=== PATIENT | female | born 1935 | race African-American/Black ===

== ENCOUNTER 2016-10-01 19:32 | Emergency (ER) | payer MEDICARE, OTHER ==
[~2016-10-01] VITALS: Ht 172.7 cm; Wt 72.6 kg
[2016-10-01 20:00] VITALS: BP 135/77
[2016-10-01 20:09] LABS: BASOPHILS % (AUTO) 1.8 % (0.0-2.0); EOSINOPHILS % (AUTO) 3.9 % (0.0-3.0); LYMPHOCYTES % (AUTO) 43.2 % (20.0-45.0); MEAN CORPUSCULAR HGB CONC 31.8 G/DL (32.0-36.0); MEAN CORPUSCULAR VOLUME 76 FL (80-99); MEAN PLATELET VOLUME 6.7 FL (6.5-10.1); MONOCYTES % (AUTO) 10.3 % (1.0-10.0); NEUTROPHILS % (AUTO) 40.7 % (45.0-75.0); PLATELET COUNT 199 K/UL (150-450); RED BLOOD COUNT 4.37 M/UL (4.20-5.40); RED CELL DISTRIBUTION WIDTH 16.7 % (11.6-14.8); WHITE BLOOD COUNT 4.9 K/UL (4.8-10.8)
[2016-10-01 20:21] LABS: ALANINE AMINOTRANSFERASE 15 U/L (3-33); ALBUMIN/GLOBULIN RATIO 1.1 (1.0-2.7); ANION GAP 16 (5-15); ASPARTATE AMINO TRANSFERASE 34 U/L (5-40); CALCIUM 9.1 mg/dL (8.6-10.2); CARBON DIOXIDE 27 mEQ/L (20-30); CHLORIDE 96 mEQ/L (98-107); CREATININE 4.2 mg/dL (0.5-0.9); HEMOLYSIS 96; LIPASE 58 U/L (< 60); POTASSIUM 4.1 mEQ/L (3.4-4.9); SODIUM 139 mEQ/L (135-145); TOTAL PROTEIN 6.7 g/dL (6.6-8.7)
[2016-10-01 21:15] VITALS: BP 170/83
[2016-10-01 21:54] LABS: APPEARANCE,URINE SLIGHTLY CLOUDY; KETONES,URINE NEGATIVE (NEGATIVE); LEUKOCYTE ESTERASE ,URINE NEGATIVE (NEGATIVE); NITRITE,URINE NEGATIVE (NEGATIVE); PH,URINE 6 (4.5-8.0); PROTEIN,URINE 4+ (NEGATIVE); UROBILINOGEN,URINE NORMAL MG/DL (0.0-1.0)
[2016-10-01 22:06] LABS: RBC,URINE 0-2 /HPF (0 - 2); SQUAMOUS EPITHELIAL CELL,UR OCCASIONAL /LPF (NONE/OCC); WBC,URINE 0-2 /HPF (0 - 2)
[2016-10-01 22:07] LABS: AMORPHOUS SEDIMENT,UR MANY /LPF; BACTERIA,URINE MODERATE /HPF
[2016-10-01 22:15] VITALS: BP 163/88
[2016-10-01 22:20] VITALS: BP 163/88
--- NOTE | 2016-10-02 09:20 | Diagnostic Imaging Report ---
Indication: PAIN Technique: Continuous helical scanning was performed without any contrast material from the diaphragms through the pelvis to elevated creatinine. Axial, sagittal, and coronal images were generated. Dose: Total Dose Length Product - DLP [address] Dose Index - CTDIvol(s) 13.88 mGy. Comparison: None Findings: Lack of any contrast material limits evaluation. There is bibasilar atelectasis. There are multiple focal low-density lesions within the liver. These are not clearly cystic but difficult to evaluate without contrast. The spleen is unremarkable. The pancreas is normal. Adrenal glands are unremarkable. The left kidney is small. Right kidney is normal in size. There are bilateral renal masses. These are not characterizable on this exam. Calcification is noted in the aorta and its branches. There is no retroperitoneal adenopathy. Diverticula are noted in the right colon. The bowel is normal caliber. The appendix is not visualized. The bladder is unremarkable. Uterus is absent. Degenerative changes are noted in the spine. There are multiple compression fractures of T12-L2, likely old. Impression: Multiple compression fractures in the spine, probably old. Multiple lesions in the liver. It is uncertain whether these represent cystic lesions or solid masses. Ultrasound may be helpful for better evaluation if contrast material could not be administered. Small left kidney. There are bilateral renal masses, nonspecific area and further characterization with ultrasound suggested. Atherosclerotic change. Previous hysterectomy. Appendix not visualized. Atelectasis in the bases. The above report is concordant with preliminary reading by [employer] . The CT scanner at [facility] is accredited by the [employer] and the scans are performed using protocols designed to limit radiation exposure to as low as reasonably achievable to attain images of sufficient resolution adequate for diagnostic evaluation.
--- NOTE | 2016-10-02 15:34 | Emergency Room Report ---
History of Present Illness General Chief Complaint: Abdominal Pain Source: Patient, EMS Present Illness HPI Patient is 81-year-old female who presented after increased abdominal pain. The patient had the questionable symptoms. Patient prior history dementia but cannot state where the pain was. Patient in been staying at a shelter. Allergies: Coded Allergies: No Known Allergies (Verified , 01/05/09) Patient History Last Menstrual Period: Unknown Now: No Reviewed Nursing Documentation: PMH: Agreed, PSxH: Agreed Nursing Documentation-PMH Past Medical History: No History, Except For Hx Neurological Problems: Yes - Dementia Hx Cerebrovascular Accident: Yes - Stroke Physical Exam Vital Signs Date Time Temp Pulse Resp B/P Pulse Ox O2 Delivery O2 Flow Rate FiO2 10/01/16 19:28 98.4 74 15 170/83 100 Room Air Sp02 EP Interpretation: reviewed, normal General Appearance: normal inspection, well appearing, no apparent distress, alert, GCS 15 Head: atraumatic ENT: normal ENT inspection, hearing grossly normal, normal voice Neck: normal inspection, full range of motion, supple, no bony tend Respiratory: normal inspection, lungs clear, normal breath sounds, no respiratory distress, no retraction, no wheezing Cardiovascular #1: regular rate, rhythm, no edema Gastrointestinal: normal inspection, normal bowel sounds, non tender, soft, no guarding, no hernia Genitourinary: no CVA tenderness Musculoskeletal: normal inspection, back normal, normal range of motion Neurologic: normal inspection, alert, responsive, speech normal Psychiatric: normal inspection, judgement/insight normal, mood/affect normal Skin: normal inspection, normal color, no rash Medical Decision Making Diagnostic Impression: Primary Impression: Abdominal pain of unknown etiology Additional Impression: Renal insufficiency ER Course Patient presented for abdominal pain. Differential diagnoses included ischemic bowel, appendicitis, perforated viscus, abdominal aortic aneurysm, inferior myocardial infarction, viral gastroenteritis A CT abdomen pelvis showed nonspecific changes the patient was noted to have prior to lumbar fractures. The patient's son was wasn't for the patient's abnormalities laboratory testing. He was advised to have the patient rechecked with primary care for further recheck of laboratory tests. Patient is discharged back to the shelter. Labs Test 10/01/16 19:55 10/01/16 21:30 White Blood Count 4.9 K/UL (4.8-10.8) Red Blood Count 4.37 M/UL (4.20-5.40) Hemoglobin 10.5 G/DL (12.0-16.0) Hematocrit 33.1 % (37.0-47.0) Mean Corpuscular Volume 76 FL (80-99) Mean Corpuscular Hemoglobin 24.0 PG (27.0-31.0) Mean Corpuscular Hemoglobin Concent 31.8 G/DL (32.0-36.0) Red Cell Distribution Width 16.7 % (11.6-14.8) Platelet Count 199 K/UL (150-450) Mean Platelet Volume 6.7 FL (6.5-10.1) Neutrophils (%) (Auto) 40.7 % (45.0-75.0) Lymphocytes (%) (Auto) 43.2 % (20.0-45.0) Monocytes (%) (Auto) 10.3 % (1.0-10.0) Eosinophils (%) (Auto) 3.9 % (0.0-3.0) Basophils (%) (Auto) 1.8 % (0.0-2.0) Prothrombin Time 10.0 SEC (9.30-11.50) Prothromb Time International Ratio 1.0 (0.9-1.1) Activated Partial Thromboplast Time 24 SEC (23-33) Sodium Level 139 mEQ/L (135-145) Potassium Level 4.1 mEQ/L (3.4-4.9) Chloride Level 96 mEQ/L (98-107) Carbon Dioxide Level 27 mEQ/L (20-30) Anion Gap 16 (5-15) Blood Urea Nitrogen 51 mg/dL (7-23) Creatinine 4.2 mg/dL (0.5-0.9) Estimat Glomerular Filtration Rate mL/min (>60) Glucose Level 118 mg/dL (74-106) Calcium Level 9.1 mg/dL (8.6-10.2) Total Bilirubin < 0.2 mg/dL (0.0-1.2) Aspartate Amino Transf (AST/SGOT) 34 U/L (5-40) Alanine Aminotransferase (ALT/SGPT) 15 U/L (3-33) Alkaline Phosphatase 62 U/L (35-104) Total Protein 6.7 g/dL (6.6-8.7) Albumin 3.6 g/dL (3.5-5.2) Globulin 3.1 g/dL Albumin/Globulin Ratio 1.1 (1.0-2.7) Lipase 58 U/L (< 60) Urine Color Pale yellow Urine Appearance Slightly cloudy Urine pH 6 (4.5-8.0) Urine Specific [place] 1.015 (1.005-1.035) Urine Protein 4+ (NEGATIVE) Urine Glucose (UA) Negative (NEGATIVE) Urine Ketones Negative (NEGATIVE) Urine Occult Blood 1+ (NEGATIVE) Urine Nitrite Negative (NEGATIVE) Urine Bilirubin Negative (NEGATIVE) Urine Urobilinogen Normal MG/DL (0.0-1.0) Urine Leukocyte Esterase Negative (NEGATIVE) Urine RBC 0-2 /HPF (0 - 2) Urine WBC 0-2 /HPF (0 - 2) Urine Squamous Epithelial Cells Occasional /LPF Urine Amorphous Sediment Many /LPF (NONE) Urine Bacteria Moderate /HPF (NONE) Last Vital Signs Date Time Temp Pulse Resp B/P Pulse Ox O2 Delivery O2 Flow Rate FiO2 10/01/16 22:20 98.4 79 15 163/88 100 Room Air Status: improved Disposition: HOME, SELF-CARE Condition: Stable Patient Instructions: Abdominal Pain, Adult MichaelRen Oct 02, 2016 15:34
--- NOTE | 2016-10-06 00:33 | Cardiology Report ---
APPROVED REPORT EKG Measurement Heart [id number] Normal sinus rhythm Possible Left atrial enlargement T wave abnormality, consider lateral ischemia Prolonged QT Abnormal ECG
== END 2016-10-01 22:20 | disposition home or self-care (01) ==
LOC: EDBD 19:32 → EMR 19:48
DX: R10.9 Unspecified abdominal pain (principal); N28.9 Disorder of kidney and ureter, unspecified; F03.90 Unspecified dementia, unspecified severity, without behavioral disturbance, psychotic disturbance, mood disturbance, and anxiety; Z86.73 Personal history of transient ischemic attack (TIA), and cerebral infarction without residual deficits
CPT/HCPCS: 36415; 74176; 80053; 81003; 83690; 85025; 85610; 85730; 87086; 93005; 99284

== ENCOUNTER 2017-06-16 12:19 | Inpatient (IN) | payer OTHER ==
[~2017-06-16] VITALS: Ht 162.6 cm; Wt 63.5 kg
[~2017-06-16 12:19] MED LIST: ACETAMINOP160 MG/51 ORAL; AMLODIPINE BESY10 MG ORAL; ATORVASTATIN CA20 MG ORAL; BENZONATATE100 MG ORAL; CALCIUM 500 +1 EAC6 PO; FUROSEMIDE20 M1 ORAL; HYDRALAZINE HCL50 MG ORAL; LABETALOL HCL200 MG ORAL; MIRALAX17 G2 ORAL; NEPHRO-VITE RX1 EAC1 PO; QUETIAPINE FUMA25 MG ORAL; SERTRALINE HCL25 MG ORAL
[2017-06-16 12:35] VITALS: BP 207/93
[2017-06-16] MEDS ORDERED: levETIRAcetam 500mg/NS100ml 100 ML IVPB ONE (12:45)
--- NOTE | 2017-06-16 13:03 | Diagnostic Imaging Report ---
Indication: Seizures, altered mental status Technique: spiral acquisitions obtained through the brain. Angled axial and coronal 5 x 5 mm slices were reconstructed. No IV contrast utilized. Radiation dose was minimized using automated exposure control Total dose length product 1418 mGycm. CTDIvol(s) 70 mGy Comparison: none FINDINGS: No acute hemorrhage or edema. No mass effect or midline shift. There is age-related enlargement of the ventricles and extra axial CSF spaces. There is periventricular deep white matter ischemic change. Old lacunar infarct in the left basal ganglia is again demonstrated. There is resultant ex vacuo dilatation of the frontal horn of the left lateral ventricle. Normal jones-white differentiation. Is evidence of prior bilateral ocular surgery. Visualized sinuses are unremarkable. Intact calvarium. No significant interim change IMPRESSION: Chronic and age-related changes. Negative for acute intracranial bleed or mass effect The CT scanner at [facility] is accredited by the [employer] and the scans are performed using protocols designed to limit radiation exposure to as low as reasonably achievable to attain images of sufficient resolution adequate for diagnostic evaluation
[2017-06-16 14:03] LABS: BASOPHILS % (AUTO) 0.8 % (0.0-2.0); EOSINOPHILS % (AUTO) 2.7 % (0.0-3.0); HEMATOCRIT 33.2 % (37.0-47.0); HEMOGLOBIN 9.7 G/DL (12.0-16.0); LYMPHOCYTES % (AUTO) 21.3 % (20.0-45.0); MEAN CORPUSCULAR VOLUME 74 FL (80-99); MONOCYTES % (AUTO) 6.9 % (1.0-10.0); NEUTROPHILS % (AUTO) 68.3 % (45.0-75.0); PLATELET COUNT 210 K/UL (150-450); RED BLOOD COUNT 4.47 M/UL (4.20-5.40); RED CELL DISTRIBUTION WIDTH 15.9 % (11.6-14.8); WHITE BLOOD COUNT 6.2 K/UL (4.8-10.8)
[2017-06-16 14:14] LABS: ANION GAP 10 mmol/L (5-15); BLOOD UREA NITROGEN 69 mg/dL (7-18); CALCIUM 8.2 MG/DL (8.5-10.1); CARBON DIOXIDE 27 MMOL/L (21-32); CHLORIDE 105 MMOL/L (98-107); CREATININE 4.8 MG/DL (0.55-1.30); POTASSIUM 3.6 MMOL/L (3.5-5.1); SODIUM 142 MMOL/L (136-145)
[2017-06-16 14:15] VITALS: BP 207/80
[2017-06-16 14:18] LABS: ALANINE AMINOTRANSFERASE 14 U/L (12-78); ALBUMIN 3.3 G/DL (3.4-5.0); ALBUMIN/GLOBULIN RATIO 0.9 (1.0-2.7); ALKALINE PHOSPHATASE 56 U/L (46-116); ASPARTATE AMINO TRANSFERASE 18 U/L (15-37); BILIRUBIN,TOTAL 0.2 MG/DL (0.2-1.0); CREATINE KINASE 129 U/L (26-308)
--- NOTE | 2017-06-16 14:18 | Diagnostic Imaging Report ---
Indication: Pain Technique: One view of the chest Comparison: 11/14/2016 Findings: Atelectasis or scarring is again demonstrated in the left mid to lower lung periphery. Lungs and pleural spaces are otherwise clear. The heart is borderline enlarged. The aorta is tortuous and ectatic Impression: No acute process Borderline cardiomegaly
--- NOTE | 2017-06-16 15:28 | Emergency Room Report ---
History of Present Illness General Chief Complaint: Seizure Source: Family Member, EMS Present Illness HPI According to assisted facility patient had a seizure. Her son doubts this. She's had blackout spells because of orthostatic hypotension and seizure- like activity in the past. She does have chronic renal insufficiency has not had dialysis. She is on Keppra right now she was hospitalized recently for similar episode at [facility]. Usually this happens when she stands. Today she was sitting eating and had a similar episode with shaking. Paramedics report normal accucheck in field. No stated missed doses of medications. No fevers. No cough. No vomiting. Patient not answering questions. She does have HTN and chronic renal insufficiency without ever being on dialysis. She's been admitted for hypertensive urgency. H/O TIA and stroke in past. H/O dementia. Microcytic anemia She was evaluated for abdominal pain 09/2016 - no dx. Allergies: Coded Allergies: No Known Allergies (Verified , 01/05/09) Patient History Limited by: medical condition Past Medical History: see triage record, old chart reviewed Social History: Denies: smoking Social History Narrative SNF Reviewed Nursing Documentation: PMH: Agreed, PSxH: Agreed Nursing Documentation-PMH Past Medical History: No History, Except For Hx Hypertension: Yes Hx Cerebrovascular Accident: Yes - Stroke Hx Dementia: Yes Hx Alzheimer's Disease: Yes Hx Memory Loss: Yes Hx Dizziness: Yes Review of Systems All Other Systems: limited Physical Exam Vital Signs Date Time Temp Pulse Resp B/P (MAP) Pulse Ox O2 Delivery O2 Flow Rate FiO2 06/16/17 12:12 98.1 82 18 182/73 96 Room Air Sp02 EP Interpretation: reviewed, normal General Appearance: no apparent distress, alert - but ebulic, Chronically Ill Head: normocephalic, atraumatic Eyes: bilateral eye normal inspection, bilateral eye PERRL ENT: moist mucus membranes Neck: supple Respiratory: lungs clear, normal breath sounds Cardiovascular #1: regular rate, rhythm Cardiovascular #2: 2+ radial (R) Gastrointestinal: normal inspection, normal bowel sounds, non tender, no mass, non-distended Musculoskeletal: back normal, normal range of motion Neurologic: responsive, DTRs symmetric, sensory intact, motor weakness - generalized Psychiatric: depressed affect Skin: normal inspection, warm/dry Medical Decision Making Diagnostic Impression: Primary Impression: Seizure-like activity Additional Impressions: CRF (chronic renal failure) Qualified Codes: N18.3 - Chronic kidney disease, stage 3 (moderate) Hypertensive urgency ER Course Patient presents with question of seizure versus syncope. DDx: orthostatic syncope, uncontrolled seizures, breakthrough seizure, electrolyte abnormalities , AMI, arrhythmia amongst others. Patient evaluated with CT head, EKG, CXR and labs. Patient treated with ativan and keppra dose. EKG without injury. CXR no infiltrates. CT head with chronic changes. Labs with chronic renal disease, microcytic anemia, negative troponin. UA not obtained. Patient without seizure activity. HTN treated with hydralazine. Patient needs cardiac observation. Admit tele Dr. Gonzalez. Requests consult Dr. Sewell. Discussed with Dr. Adorno. Laboratory Tests Test 06/16/17 13:30 White Blood Count 6.2 K/UL (4.8-10.8) Red Blood Count 4.47 M/UL (4.20-5.40) Hemoglobin 9.7 G/DL (12.0-16.0) L Hematocrit 33.2 % (37.0-47.0) L Mean Corpuscular Volume 74 FL (80-99) L Mean Corpuscular Hemoglobin 21.7 PG (27.0-31.0) L Mean Corpuscular Hemoglobin Concent 29.2 G/DL (32.0-36.0) L Red Cell Distribution Width 15.9 % (11.6-14.8) H Platelet Count 210 K/UL (150-450) Mean Platelet Volume 8.8 FL (6.5-10.1) Neutrophils (%) (Auto) 68.3 % (45.0-75.0) Lymphocytes (%) (Auto) 21.3 % (20.0-45.0) Monocytes (%) (Auto) 6.9 % (1.0-10.0) Eosinophils (%) (Auto) 2.7 % (0.0-3.0) Basophils (%) (Auto) 0.8 % (0.0-2.0) Sodium Level 142 MMOL/L (136-145) Potassium Level 3.6 MMOL/L (3.5-5.1) Chloride Level 105 MMOL/L (98-107) Carbon Dioxide Level 27 MMOL/L (21-32) Anion Gap 10 mmol/L (5-15) Blood Urea Nitrogen 69 mg/dL (7-18) H Creatinine 4.8 MG/DL (0.55-1.30) H Estimate Glomerular Filtration Rate mL/min (>60) Glucose Level 108 MG/DL (74-106) H Calcium Level 8.2 MG/DL (8.5-10.1) L Total Bilirubin 0.2 MG/DL (0.2-1.0) Aspartate Amino Transferase (AST) 18 U/L (15-37) Alanine Aminotransferase (ALT) 14 U/L (12-78) Alkaline Phosphatase 56 U/L (46-116) Total Creatine Kinase 129 U/L (26-308) Troponin I 0.047 ng/mL (0.000-0.056) Total Protein 7.1 G/DL (6.4-8.2) Albumin 3.3 G/DL (3.4-5.0) L Globulin 3.8 g/dL Albumin/Globulin Ratio 0.9 (1.0-2.7) L EKG Diagnostic Results Rate: normal Rhythm: NSR ST Segments: no acute changes Rhythm Strip Diag. Results EP Interpretation: yes Rhythm: NSR, other - rate 75, rare PVCs Chest X-Ray Diagnostic Results Chest X-Ray Diagnostic Results : Chest X-Ray Ordered: Yes # of Views/Limited/Complete: 1 View Indication: Other EP Interpretation: Yes Interpretation: no consolidation, no effusion, no pneumothorax Impression: No acute disease Electronically Signed by: Kyle Huber MD CT/MRI/US Diagnostic Results CT/MRI/US Diagnostic Results : Imaging Test Ordered: CT head Impression chronic age related changes Last Vital Signs Date Time Temp Pulse Resp B/P (MAP) Pulse Ox O2 Delivery O2 Flow Rate FiO2 06/16/17 20:12 98.4 100 18 166/83 96 Room Air Status: improved Disposition: ADMITTED INPATIENT Condition: Serious Referrals: [facility],REFERRING (PCP) Kyle Huber M.D. Jun 16, 2017 15:28
[2017-06-16 15:39] VITALS: BP 198/95
[2017-06-16 17:08] VITALS: BP 174/65
[2017-06-16] MEDS ORDERED: LEVETIRACE500 MG/100 IV (17:08)
[2017-06-16] MEDS ORDERED: ISOSORBIDE DINI20 M2 PO (17:08)
--- NOTE | 2017-06-16 17:15 | History & Physical ---
History and Physical History & Physicial DATE OF ADMISSION: 06/16/2017 HISTORY OF PRESENT ILLNESS: This is an 81-year-old female is a halfway resident at [facility]. She had an episode of syncope and possible seizure activity while sitting eating lunch. The son reported a recent admission to with a similar presentation recently. At that time, she was hypertensive had orthostatic hypotension. PAST MEDICAL HISTORY: Notable for hypertensive cardiovascular disease, Alzheimer's dementia, previous CVA, and CKD not on dialysis. MEDICATIONS: reviewed. HTN rx recently changed by her PMD ALLERGIES: None listed. CODE STATUS: DNR. The patient is too confused to give a ROS PHYSICAL EXAMINATION: GENERAL: WD/WN VITAL SIGNS: Blood pressure >200. She is afebrile. HEENT: Unremarkable. LUNGS: Clear breath sounds bilaterally. ABDOMEN: Soft. NEUROLOGIC: Nonfocal. Poor memory LABORATORY DATA: Lab testing reviewed; creatinine 4.8. IMPRESSION: 1. Syncope, possible seizure. 2. Hypertension; orthostatic hypotension. 3. Chronic kidney disease. PLAN: neuro and renal consultants called echo, CDS adjust BP rx LUDA VALDIVIA Jun 16, 2017 17:15
[2017-06-16 17:42] VITALS: BP 164/97
[2017-06-16 20:12] VITALS: BP 166/83
--- NOTE | 2017-06-16 22:09 | Consultation ---
Consult Note Consult Note NEUROLOGY CONSULTATION: Full note dictated #[id number] 81 y/o, LH, BF with PH of HTN, AD, CVD, and a prior episode of loss of consciousness with abnormal body jerking recently. She was sitting up, eating her lunch and again had an episode of loss of consciousness with abnormal body jerking and was thus brought to the [facility] [place] ER. ON EXAM: Significant cognitive problems. Mild right paresis. CT of Brain with periventricular deep white matter ischemic changes, and an old lacunar infarct in the left basal ganglia. IMPRESSION: Syncopal event with myoclonus vs seizure. REC: EEG Labs Observe. Berkley Adorno M.D., M.S.P.BERKLEY GUERIN Jun 16, 2017 22:09
--- NOTE | 2017-06-16 22:45 | Consultation ---
DATE OF CONSULTATION: 06/16/2017 NEUROLOGY CONSULTATION CONSULTING PHYSICIAN: Oswaldo Adorno M.D. REQUESTING PHYSICIAN: Erik Gonzalez M.D. DATE OF TRACIN06/16/2017. HISTORY: Ms. Stephanie Dietrich is an 81-year-old, left-handed, black lady, who does have a past history of hypertension, Alzheimer's disease, cerebrovascular disease with prior stroke, and prior episodes of loss of consciousness with abnormal body jerking recently for which she was hospitalized at [facility]. She was functioning relatively well until the afternoon of 06/16/17 when she was sitting eating her lunch and again had an episode of loss of consciousness with some abnormal body jerking. She was brought into the [facility] for that problem. At this point in time, she feels quite well and is completely oblivious of what was going on earlier and what is going on now. She is unable to give any further history. PAST MEDICAL HISTORY: Significant for hypertension, cerebrovascular disease with prior strokes, and Alzheimer's disease. FAMILY HISTORY: Nothing significant as per the patient. PERSONAL HISTORY: Home: She lives in a snf. 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 Habits: She denies use of tobacco or illicit drugs. She says that she used to have a rare alcoholic drink in the past. PRESENT MEDICATIONS: Include Norvasc, Seroquel, Zoloft, hydralazine, and Lipitor. PHYSICAL EXAMINATION: GENERAL: She is a well-developed, well-nourished, pleasant black lady, lying in bed, in no acute distress, trying to take her EKG electrodes off. VITAL SIGNS: Pulse 98 per minute, blood pressure 166/83 mmHg, respirations 18 per minute, and temperature 98.4 degrees Fahrenheit. HEAD: Normocephalic and atraumatic. EENT: Examination benign. NECK: No neck rigidity was observed. NEUROLOGIC EXAMINATION: MENTAL STATUS EXAMINATION: She was awake and alert. She was oriented to self only. She had no idea where she was or what the date was. She was able to recall 3/3 words immediately, but could not remember any of them in 1 minute and 3 minutes. She thought that Obama was president, but could not remember presidents prior to him or following him. Her mathematical skills were impaired. Her visuospatial function was also impaired. SPEECH: She had no dysarthria. LANGUAGE: She had an anomia for low and mid frequency words. CRANIAL NERVE EXAMINATION: II: The visual coppola were intact on confrontation testing. III, IV & : The external ocular movements were full and the pupils 3 mm in diameter, equal, round, regular, and reactive to light. V: She had normal facial sensations and the temporales, masseters, and pterygoids functioned normally. VII: She had a mild right VII central facial paresis. VIII: She was able to hear well bilaterally and had no nystagmus. IX: The palate moved symmetrically on phonation. X: She had no hoarseness of voice. XI: The sternocleidomastoids and trapezii functioned normally. XII: The tongue was in midline without any fasciculations or atrophy. MOTOR SYSTEM: The tone was normal in all four extremities. Examination of muscle mass revealed no focal wasting. Examination of power revealed grade 5/5 power in all muscle groups tested. SENSORY EXAMINATION: She had intact sensations to pinprick, light touch, and graphesthesia. COORDINATION: She performed well on [id number] and [id number] testing. REFLEXES: 1+ and bilaterally symmetrical at the biceps, triceps, brachioradialis, and knees. 0 at both ankles. The plantar responses were flexor bilaterally. STANCE: She stood up with contact guard. GAIT: She walked well with contact guard. DIAGNOSTIC IMPRESSION: 1. Ms. Stephanie Dietrich is an 81-year-old, left-handed, black lady, who does have a past history of hypertension, cerebrovascular disease with prior strokes, Alzheimer's disease, and prior episodes of loss of consciousness with some abnormal body jerking, who was sitting up eating lunch and again had an episode of loss of consciousness associated with some abnormal body jerking. As a result of that, she was brought into the [facility] emergency room. 2. On neurological examination, at this time, she is completely oblivious of why she came here. She has significant problems with orientation, recent and remote memory, visuospatial function, higher cognitive function, and language. She also has a mild right VII central facial paresis and globally diminished deep tendon reflexes. 3. The CT scan of the brain without contrast reveals periventricular deep white matter ischemic changes and an old lacunar infarct in the left basal ganglia. 4. The patient's history and neurological examination are most compatible with either a syncopal episode associated with myoclonus versus less likely a questionable seizure. RECOMMENDATIONS: 1. Agree with management thus far. 2. An EEG will be ordered to evaluate the patient for ongoing ictal or interictal phenomena. 3. Laboratory data will be obtained to evaluate the patient for syncope and seizures. 4. The patient will be observed closely and depending on how she fares further recommendations will be given. Thank you for entrusting me with the care of Ms. Dietrich. I shall follow her with you. Oswaldo Adorno M.D., M.S.P.H. DR: JAZMÍN JOB#: [id number]
[2017-06-17 00:13] VITALS: BP 149/84
[2017-06-17] MEDS: HydrALAZINE 50mg tab ORAL SCH ×3 (00:36→14:42)
[2017-06-17 04:07] VITALS: BP 154/79
[2017-06-17 07:01] LABS: BASOPHILS % (AUTO) 0.5 % (0.0-2.0); EOSINOPHILS % (AUTO) 0.1 % (0.0-3.0); HEMATOCRIT 28.7 % (37.0-47.0); HEMOGLOBIN 8.9 G/DL (12.0-16.0); LYMPHOCYTES % (AUTO) 15.8 % (20.0-45.0); MEAN CORPUSCULAR VOLUME 73 FL (80-99); MONOCYTES % (AUTO) 5.6 % (1.0-10.0); NEUTROPHILS % (AUTO) 77.9 % (45.0-75.0); PLATELET COUNT 219 K/UL (150-450); RED CELL DISTRIBUTION WIDTH 15.7 % (11.6-14.8); WHITE BLOOD COUNT 10.6 K/UL (4.8-10.8)
[2017-06-17 07:48] LABS: ALANINE AMINOTRANSFERASE 19 U/L (12-78); ALBUMIN 2.8 G/DL (3.4-5.0); ALBUMIN/GLOBULIN RATIO 0.7 (1.0-2.7); ALKALINE PHOSPHATASE 53 U/L (46-116); ANION GAP 9 mmol/L (5-15); ASPARTATE AMINO TRANSFERASE 31 U/L (15-37); BILIRUBIN,TOTAL 0.4 MG/DL (0.2-1.0); BLOOD UREA NITROGEN 57 mg/dL (7-18); CALCIUM 7.7 MG/DL (8.5-10.1); CARBON DIOXIDE 27 MMOL/L (21-32); CHLORIDE 108 MMOL/L (98-107); CHOLESTEROL 265 MG/DL (< 200); CREATININE 4.5 MG/DL (0.55-1.30); HDL CHOLESTEROL 86 MG/DL (40-60); POTASSIUM 3.6 MMOL/L (3.5-5.1); SODIUM 143 MMOL/L (136-145); TRIGLYCERIDES 72 MG/DL (30-150)
[2017-06-17 08:00] VITALS: BP 147/74
[2017-06-17] MEDS: Sertraline 50mg tab ORAL SCH (08:57)
[2017-06-17] MEDS: Metoprolol 25mg tab ORAL SCH ×2 (08:57→21:26)
[2017-06-17] MEDS: Aspirin EC 81mg tab ORAL SCH (08:59)
[2017-06-17 09:01] LABS: % IRON SATURATION 6 % (15-50); IRON 13 ug/dL (50-175); TOTAL IRON BINDING CAPACITY 206 ug/dL (250-450)
[2017-06-17 09:12] LABS: FERRITIN 87 NG/ML (8-388)
[2017-06-17 12:00] VITALS: BP 152/75
--- NOTE | 2017-06-17 13:37 | General Progress Note ---
Assessment/Plan Assessment/Plan 1. Syncope, possible seizure. 2. Hypertension; orthostatic hypotension. 3. Chronic kidney disease. 4. NSTEMI the patient said she is feeling fine. She is unaware of why she is here. Her troponin was elevated she has no chest pain I have called the video tape duplicator for evaluation she is a poor candidate for intervention neurology notes were reviewed Subjective ROS Limited/Unobtainable: Yes Allergies: Coded Allergies: No Known Allergies (Verified , 01/05/09) Objective Last 24 Hour Vital Signs Date Time Temp Pulse Resp B/P (MAP) Pulse Ox O2 Delivery O2 Flow Rate FiO2 06/17/17 08:57 93 147/74 06/17/17 08:57 93 147/74 06/17/17 08:00 98.1 93 19 147/74 95 Room Air 06/17/17 06:27 154/79 06/17/17 04:07 98.2 91 18 154/79 98 Room Air 06/17/17 04:00 94 06/17/17 00:36 149/84 06/17/17 00:13 97.7 103 18 149/84 98 Room Air 06/17/17 00:00 105 06/16/17 20:12 98.4 100 18 166/83 96 Room Air 06/16/17 20:00 109 06/16/17 17:42 96.8 92 18 164/97 95 Room Air 06/16/17 17:09 92 20 174/65 100 Room Air 06/16/17 17:08 92 20 174/65 100 Room Air 06/16/17 15:52 198/95 06/16/17 15:39 85 23 198/95 100 Room Air 06/16/17 14:15 8 15 207/80 98 Room Air Intake and Output 06/16/17 06/17/17 19:00 07:00 Intake Total 1100 ml Output Total 400 ml Balance 1100 ml -400 ml Intake Oral 0 ml IV Total 1100 ml Output Urine Total 400 ml # Voids 1 Laboratory Tests 06/16/17 18:25: Troponin I 0.041 06/17/17 06:30: Troponin I 3.807H, White Blood Count 10.6#, Red Blood Count 3.90L, Hemoglobin 8.9L, Hematocrit 28.7L, Mean Corpuscular Volume 73L, Mean Corpuscular Hemoglobin 22.8L, Mean Corpuscular Hemoglobin Concent 31.0L, Red Cell Distribution Width 15.7H, Platelet Count 219, Mean Platelet Volume 9.0, Neutrophils (%) (Auto) 77.9H, Lymphocytes (%) (Auto) 15.8L, Monocytes (%) (Auto ) 5.6, Eosinophils (%) (Auto) 0.1, Basophils (%) (Auto) 0.5, Erythrocyte Sedimentation Rate 45H, Sodium Level 143, Potassium Level 3.6, Chloride Level 108H, Carbon Dioxide Level 27, Anion Gap 9, Blood Urea Nitrogen 57H, Creatinine 4.5H, Estimat Glomerular Filtration Rate , Glucose Level 120H, Hemoglobin A1c 6.3H, Calcium Level 7.7L, Iron Level 13L, Total Iron Binding Capacity 206L, Percent Iron Saturation 6L, Unsaturated Iron Binding 193, Ferritin 87, Total Bilirubin 0.4, Aspartate Amino Transf (AST/SGOT) 31, Alanine Aminotransferase ( ALT/SGPT) 19, Alkaline Phosphatase 53, Total Protein 6.7, Albumin 2.8L, Globulin 3.9, Albumin/Globulin Ratio 0.7L, Triglycerides Level 72, Cholesterol Level 265H, LDL Cholesterol 157H, HDL Cholesterol 86H, Cholesterol/HDL Ratio 3.1L, Vitamin B12 Level 1449H, Vitamin D 25-Hydroxy [Pending], 25-Hydroxy Vitamin D2 [Pending], 25-Hydroxy Vitamin D3 [Pending], Folate 45.4, Thyroid Stimulating Hormone (TSH) 1.908, Rapid Plasma Reagin [Pending] 06/17/17 13:10: Troponin I [Pending] Height (Feet): 5 Height (Inches): 4.00 Weight (Pounds): 140 General Appearance: no apparent distress Cardiovascular: normal rate Respiratory/Chest: lungs clear LUDA VALDIVIA Jun 17, 2017 13:37
[2017-06-17 14:09] LABS: CKMB 17.7 NG/ML (0.0-3.6)
--- NOTE | 2017-06-17 15:55 | Neurology Progress Note ---
Interim History Interim History Interim History Ms. Dietrich feels well. She has had no further episodes of lightheadedness, dizziness, loss of consciousness or seizure-like phenomena. She denies any new neurologic symptoms. She was able to walk to the bathroom earlier. She continues to be cognitively impoverished. Review of Systems Neuro Review of Systems Benign. Objective Physical Exam Last Vital Signs Date Time Temp Pulse Resp B/P (MAP) Pulse Ox O2 Delivery O2 Flow Rate FiO2 06/17/17 14:42 152/75 06/17/17 08:57 93 06/17/17 08:00 98.1 19 95 Room Air Laboratory Tests Test 06/16/17 18:25 06/17/17 06:30 06/17/17 13:10 Troponin I 0.041 ng/mL (0.000-0.056) 3.807 ng/mL (0.000-0.056) 7.399 ng/mL (0.000-0.056) White Blood Count 10.6 K/UL (4.8-10.8) # Red Blood Count 3.90 M/UL (4.20-5.40) L Hemoglobin 8.9 G/DL (12.0-16.0) L Hematocrit 28.7 % (37.0-47.0) L Mean Corpuscular Volume 73 FL (80-99) L Mean Corpuscular Hemoglobin 22.8 PG (27.0-31.0) L Mean Corpuscular Hemoglobin Concent 31.0 G/DL (32.0-36.0) L Red Cell Distribution Width 15.7 % (11.6-14.8) H Platelet Count 219 K/UL (150-450) Mean Platelet Volume 9.0 FL (6.5-10.1) Neutrophils (%) (Auto) 77.9 % (45.0-75.0) H Lymphocytes (%) (Auto) 15.8 % (20.0-45.0) L Monocytes (%) (Auto) 5.6 % (1.0-10.0) Eosinophils (%) (Auto) 0.1 % (0.0-3.0) Basophils (%) (Auto) 0.5 % (0.0-2.0) Erythrocyte Sedimentation Rate 45 MM/HR (0-42) H Sodium Level 143 MMOL/L (136-145) Potassium Level 3.6 MMOL/L (3.5-5.1) Chloride Level 108 MMOL/L (98-107) H Carbon Dioxide Level 27 MMOL/L (21-32) Anion Gap 9 mmol/L (5-15) Blood Urea Nitrogen 57 mg/dL (7-18) H Creatinine 4.5 MG/DL (0.55-1.30) H Estimat Glomerular Filtration Rate mL/min (>60) Glucose Level 120 MG/DL (74-106) H Hemoglobin A1c 6.3 % (4.3-6.0) H Calcium Level 7.7 MG/DL (8.5-10.1) L Iron Level 13 ug/dL (50-175) L Total Iron Binding Capacity 206 ug/dL (250-450) L Percent Iron Saturation 6 % (15-50) L Unsaturated Iron Binding 193 ug/dL (112-346) Ferritin 87 NG/ML (8-388) Total Bilirubin 0.4 MG/DL (0.2-1.0) Aspartate Amino Transf (AST/SGOT) 31 U/L (15-37) Alanine Aminotransferase (ALT/SGPT) 19 U/L (12-78) Alkaline Phosphatase 53 U/L (46-116) Total Protein 6.7 G/DL (6.4-8.2) Albumin 2.8 G/DL (3.4-5.0) L Globulin 3.9 g/dL Albumin/Globulin Ratio 0.7 (1.0-2.7) L Triglycerides Level 72 MG/DL (30-150) Cholesterol Level 265 MG/DL (< 200) H LDL Cholesterol 157 mg/dL (<100) H HDL Cholesterol 86 MG/DL (40-60) H Cholesterol/HDL Ratio 3.1 (3.3-4.4) L Vitamin B12 Level 1449 PG/ML (193-986) H Vitamin D 25-Hydroxy Pending 25-Hydroxy Vitamin D2 Pending 25-Hydroxy Vitamin D3 Pending Folate 45.4 NG/ML (8.6-58.9) Thyroid Stimulating Hormone (TSH) 1.908 uiU/mL (0.358-3.740) Rapid Plasma Reagin Pending Total Creatine Kinase 347 U/L (26-308) H Creatine Kinase MB 17.7 NG/ML (0.0-3.6) H Creatine Kinase MB Relative Index 5.1 Neurologic Exam Objective PHYSICAL EXAMINATION: GENERAL: She is a well-developed, well-nourished, pleasant black lady, lying in bed, in no acute distress. HEAD: Normocephalic and atraumatic. EENT: Examination benign. NECK: No neck rigidity was observed. NEUROLOGIC EXAMINATION: MENTAL STATUS EXAMINATION: She was awake and alert. She was oriented to self only. She had no idea where she was or what the date was. She was able to recall 3/3 words immediately, but could not remember any of them in 1 minute and 3 minutes. She thought that Obama was president, but could not remember presidents prior to him or following him. Her mathematical skills were impaired. Her visuospatial function was also impaired. SPEECH: She had no dysarthria. LANGUAGE: She had an anomia for low and mid frequency words. CRANIAL NERVE EXAMINATION: II: The visual coppola were intact on confrontation testing. III, IV & : The external ocular movements were full and the pupils 3 mm in diameter, equal, round, regular, and reactive to light. V: She had normal facial sensations and the temporales, masseters, and pterygoids functioned normally. VII: She had a mild right VII central facial paresis. VIII: She was able to hear well bilaterally and had no nystagmus. IX: The palate moved symmetrically on phonation. X: She had no hoarseness of voice. XI: The sternocleidomastoids and trapezii functioned normally. XII: The tongue was in midline without any fasciculations or atrophy. MOTOR SYSTEM: The tone was normal in all four extremities. Examination of muscle mass revealed no focal wasting. Examination of power revealed grade 5/5 power in all muscle groups tested. SENSORY EXAMINATION: She had intact sensations to pinprick, light touch, and graphesthesia. COORDINATION: She performed well on [id number] and [id number] testing. REFLEXES: 1+ and bilaterally symmetrical at the biceps, triceps, brachioradialis, and knees. 0 at both ankles. The plantar responses were flexor bilaterally. STANCE: She stood up with contact guard. GAIT: She walked well with contact guard. Impression/Recommendations Diagnostic Impression 1. Ms. Stephanie Dietrich is an 81-year-old, left-handed, black lady, who does have a past history of hypertension, cerebrovascular disease with prior strokes , Alzheimer's disease, and prior episodes of loss of consciousness with some abnormal body jerking, who was sitting up eating lunch and again had an episode of loss of consciousness associated with some abnormal body jerking. As a result of that, she was brought into the [facility] emergency room. 2. She feels better today. She has had no further episodes of lightheadedness, dizziness, loss of consciousness or seizure-like phenomena. She denies any new neurologic symptoms. She continues to be cognitively impoverished. 3. On neurological examination, at this time, she is completely oblivious of why she came here. She has significant problems with orientation, recent and remote memory, visuospatial function, higher cognitive function, and language. She also has a mild right VII central facial paresis and globally diminished deep tendon reflexes. 4. The CT scan of the brain without contrast reveals periventricular deep white matter ischemic changes and an old lacunar infarct in the left basal ganglia. 5. Laboratory test reveal significantly elevated troponins. 6. The patient's history and neurological examination are most compatible with a syncopal episode associated with myoclonus which may be related to an acute coronary syndrome. A less likely etiology would be a questionable seizure. Recommendations 1. Agree with management thus far. 2. Await EEG to evaluate the patient for ongoing ictal or interictal phenomena. 3. Await laboratory data to evaluate the patient for syncope and seizures. 4. Cardiac management as per Dr. Franklin. 5. Observe closely. Oswaldo Adorno M.D., M.S.P.OSWALDO GUERIN Jun 17, 2017 15:55
--- NOTE | 2017-06-17 16:45 | Consultation ---
DATE OF CONSULTATION: 06/17/2017 NEPHROLOGY CONSULTATION CONSULTING PHYSICIAN: Quoc Ferreira M.D. REFERRING PHYSICIAN: Erik Gonzalez M.D. REASON FOR CONSULTATION: Elevated BUN and creatinine. HISTORY OF PRESENT ILLNESS: the patient is only a fair historian. She lives in an ECF. She apparently presents with syncope, but she cannot give me any details. There is a history of chronic kidney disease. In her prior hospitalizations, her creatinines have been in the 4s for the last year. There is a history of hypertension, seizure disorder, and chronic kidney disease. PAST SURGICAL HISTORY: Bunion surgery. ALLERGIES: None known. MEDICATIONS: Include amlodipine, atorvastatin, furosemide, isosorbide, Keppra, Seroquel, oyster shell calcium, sertraline, vitamin B complex with p.r.n. acetaminophen, Imodium, hydralazine, and MiraLax. HABITS: She is a nondrinker and nonsmoker. No use of illicit drugs. SOCIAL HISTORY: She lives in an ECF. SYSTEM REVIEW: HEAD, EYES, EARS, NOSE, AND THROAT: She states her vision and hearing is good. ENDOCRINE: She states she has diabetes for many years, but apparently she is not on diabetic medicines now. No known thyroid disease. PULMONARY: Denies shortness of breath or chronic cough. CARDIAC: Denies chest pain or palpitations. She has a history of hypertension and hyperlipidemia. GASTROINTESTINAL: No nausea, vomiting, or abdominal pain. GENITOURINARY: No dysuria or hematuria. NEUROLOGIC: Questionable CVA noted on a prior hospitalization. She was hospitalized for altered mental status in the past and had per reports on the chart negative MRI recently. PHYSICAL EXAMINATION: GENERAL: The patient is alert, elderly lady, in no acute distress. VITAL SIGNS: Temperature 98.2, pulse 91, respirations 18, and blood pressure 154/79. HEAD, EYES, EARS, NOSE, AND THROAT: Sclerae are nonicteric. Ocular motions intact in all directions. Oral mucosa is moist. NECK: No adenopathy or thyroid enlargement. LUNGS: Clear. HEART: Regular rhythm. I hear no murmur. ABDOMEN: Soft without organomegaly or masses. EXTREMITIES: No edema, cyanosis, or clubbing. NEUROLOGIC: She is alert and responsive. Ocular motions intact in all directions. Smile symmetric. Tongue is midline. She moves all extremities. PERTINENT LABORATORIES: White count 10.6 and hemoglobin is 8.9. Sodium 143, potassium is 3.6, chloride 108, CO2 27, BUN 57, creatinine 4.5, glucose 120, and calcium is 7.7. Troponin serially as follows, 0.047, 0.041, and 3.807. The albumin is 2.8. Cholesterol 265. TSH 1.9. IMPRESSION: The patient has chronic kidney disease with serum creatinine in the 4s. There is, on this admission, an elevated troponin, but she denies chest pain. There is a history of seizure disorder. Her total CK is normal at 129. So, it appears that the troponin is indeed a true abnormality. PLAN: The patient's renal function appears to be stable. I would avoid dehydration. She is being evaluated for syncope and cardiac status and case was discussed in detail with Dr. Gonzalez. Epogen should be given for the anemia of chronic kidney disease. At this point, she has no symptoms of uremia and can survive without dialysis, although in the long run, she may need to consider whether or not dialysis is in her goals of care. Quoc Ferreira M.D. : TAZ JOB#: [id number] CC:
[2017-06-17 20:12] VITALS: BP 160/77
[2017-06-17] MEDS: Epogen (for ESRD on dialysis) SUBQ SCH (21:27)
[2017-06-18] VITALS (7 sets, daily range): BP systolic 139–195; BP diastolic 79–102
[2017-06-18] MEDS: HydrALAZINE 50mg tab ORAL SCH ×4 (00:21→22:24)
--- NOTE | 2017-06-18 03:45 | Consultation ---
DATE OF CONSULTATION: 06/17/2017 CARDIOLOGY CONSULTATION CONSULTING PHYSICIAN: Kyle Franklin M.D. REQUESTING PHYSICIAN: Erik Gonzalez M.D. REASON FOR CONSULT: Elevated troponin level. HISTORY OF PRESENT ILLNESS: This is an elderly female, age 81, who lives in an extended care facility. History is obtained mostly from her son at the bedside. The patient apparently had a syncopal episode, but could not give any details. Her son did not have any specific seizure noted at the long term. The patient was admitted here yesterday afternoon and started on a case monitor. Since admission, no arrhythmias have been noted. Of concern, however, is an elevated troponin level detected today. The patient has not had any chest pain or shortness of breath to her recollection and has none now. PAST MEDICAL HISTORY: Includes cerebrovascular disease with dementia, chronic kidney disease, hypertension, atherosclerotic cardiovascular disease, and suspected seizure disorder. SOCIAL HISTORY: Negative for smoking, alcohol, or substance abuse. FAMILY HISTORY: Noncontributory. ALLERGIES: None known. MEDICATIONS: Reviewed and reconciled. REVIEW OF SYSTEMS: Unobtainable reliably from the patient. Pertinent data is outlined above as obtained from her son. PHYSICAL EXAMINATION: VITAL SIGNS: Blood pressure 150/79, pulse 91, respiratory rate 18, and afebrile. HEENT: Conjunctivae are pink. Oropharynx clear. NECK: Supple. Jugular venous pressure normal. No bruits. LUNGS: Clear. CARDIAC: Regular rhythm and rate. Normal S1, S2 with a fourth heart sound. No murmur. ABDOMEN: Soft, nontender. No guarding or rebound. EXTREMITIES: No edema. NEUROLOGIC: Nonfocal. LABORATORY DATA: Troponin 0.047 on admission and today 3.80. Albumin 2.8. BUN 57 and creatinine 4.5. White count 10.6 and hemoglobin 8.9. IMPRESSION: 1. Acute myocardial infarction. 2. Syncopal episode may be associated with that event. 3. Chronic kidney disease. 4. Cerebrovascular disease with dementia. PLAN: 1. Anti-platelet therapy with aspirin. 2. Cardiac monitoring. 3. Add statin drug, beta-blockade with titration. 4. Monitor cardiorenal parameters and volume status. 5. Medical management in this clinical setting. Kyle Franklin M.D. DR: TED JOB#: [id number] CC:
[2017-06-18] MEDS ORDERED: HydrALAZINE 50mg tab ORAL ONE (04:15)
[2017-06-18 07:31] LABS: EOSINOPHILS % (AUTO) 3.8 % (0.0-3.0); HEMATOCRIT 29.6 % (37.0-47.0); HEMOGLOBIN 9.2 G/DL (12.0-16.0); LYMPHOCYTES % (AUTO) 22.5 % (20.0-45.0); MEAN CORPUSCULAR VOLUME 74 FL (80-99); MONOCYTES % (AUTO) 7.5 % (1.0-10.0); NEUTROPHILS % (AUTO) 65.3 % (45.0-75.0); PLATELET COUNT 205 K/UL (150-450); RED BLOOD COUNT 3.98 M/UL (4.20-5.40); RED CELL DISTRIBUTION WIDTH 15.5 % (11.6-14.8); WHITE BLOOD COUNT 8.5 K/UL (4.8-10.8)
[2017-06-18 07:50] LABS: ANION GAP 11 mmol/L (5-15); BLOOD UREA NITROGEN 59 mg/dL (7-18); CALCIUM 7.9 MG/DL (8.5-10.1); CARBON DIOXIDE 25 MMOL/L (21-32); CHLORIDE 108 MMOL/L (98-107); CREATININE 4.8 MG/DL (0.55-1.30); POTASSIUM 3.6 MMOL/L (3.5-5.1); SODIUM 144 MMOL/L (136-145)
[2017-06-18] MEDS: Aspirin EC 81mg tab ORAL SCH (08:37)
[2017-06-18] MEDS: Metoprolol 25mg tab ORAL SCH ×2 (08:38→20:36)
[2017-06-18] MEDS: Sertraline 50mg tab ORAL SCH (08:38)
--- NOTE | 2017-06-18 10:00 | Progress Note ---
DATE: 06/18/2017 CARDIOLOGY PROGRESS NOTE SUBJECTIVE: The patient without any seizure activity. No chest pain. No shortness of breath. OBJECTIVE: VITAL SIGNS: Blood pressure this morning is extremely labile ranging from 139/97 to 203/99, oxygen saturation on room air is 94% to 97%, and heart rate is 86 to 91. LUNGS: Good breath sounds. No wheezing. No tenderness over the chest wall. HEART: Regular rhythm and rate. Normal S1, S2 with a fourth heart sound. ABDOMEN: Soft. EXTREMITIES: No edema. LABORATORY DATA: Labs are pending. IMPRESSION: 1. Acute myocardial infarction. 2. Iron deficiency anemia. 3. Cerebrovascular disease with dementia. 4. Possible seizure more likely antiarrhythmic event associated with myocardial infarction. 5. Moderate protein-calorie malnutrition. PLAN: Maintain current medication regimen including aspirin and statin as well as beta-andrez without change. Outpatient evaluation for EEG. Titrate antihypertensive medications. Kyle Franklin M.D. DR: BRENNON JOB#: [id number] CC:
--- NOTE | 2017-06-18 10:44 | Nephrology Progress Note ---
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 Subjective ROS Limited/Unobtainable: Yes Objective Objective Last 24 Hour Vital Signs Date Time Temp Pulse Resp B/P (MAP) Pulse Ox O2 Delivery O2 Flow Rate FiO2 06/18/17 08:38 88 194/79 06/18/17 08:38 88 194/79 06/18/17 06:58 160/79 06/18/17 04:37 203/99 06/18/17 04:00 97.6 86 18 154/85 94 Room Air 06/18/17 04:00 78 06/18/17 00:30 98.1 91 18 139/97 97 Room Air 06/18/17 00:21 185/91 06/18/17 00:00 81 06/17/17 21:26 90 160/77 06/17/17 20:12 98.2 90 18 160/77 96 Room Air 06/17/17 16:00 99 06/17/17 14:42 152/75 06/17/17 12:00 97.7 81 19 152/75 96 Room Air 06/17/17 12:00 77 Intake and Output 06/17/17 06/18/17 19:00 07:00 Intake Total 890 ml Output Total 200 ml Balance 890 ml -200 ml Intake Oral 890 ml Output Urine Total 200 ml # Voids 3 Laboratory Tests 06/17/17 13:10: Total Creatine Kinase 347H, Creatine Kinase MB 17.7H, Creatine Kinase MB Relative Index 5.1, Troponin I 7.399H 06/17/17 18:25: Urine Random Total Protein 349H, Urine Random Sodium 69, Urine Creatinine 94.6, Urine Opiates Screen Negative, Urine Barbiturates Screen Negative, Phencyclidine (PCP) Screen Negative, Urine Amphetamines Screen Negative, Urine Benzodiazepines Screen Negative, Urine Cocaine Screen Negative, Urine Marijuana (THC) Screen Negative 06/18/17 06:20: Troponin I 6.988H, White Blood Count 8.5, Red Blood Count 3.98L, Hemoglobin 9.2L , Hematocrit 29.6L, Mean Corpuscular Volume 74L, Mean Corpuscular Hemoglobin 23.0L, Mean Corpuscular Hemoglobin Concent 30.9L, Red Cell Distribution Width 15.5H, Platelet Count 205, Mean Platelet Volume 7.9, Neutrophils (%) (Auto) 65.3 , Lymphocytes (%) (Auto) 22.5, Monocytes (%) (Auto) 7.5, Eosinophils (%) (Auto) 3.8H, Basophils (%) (Auto) 1.0, Sodium Level 144, Potassium Level 3.6, Chloride Level 108H, Carbon Dioxide Level 25, Anion Gap 11, Blood Urea Nitrogen 59H, Creatinine 4.8H, Estimat Glomerular Filtration Rate , Glucose Level 109H, Calcium Level 7.9L Height (Feet): 5 Height (Inches): 4.00 Weight (Pounds): 140 General Appearance: no apparent distress, alert, confused EENT: normal ENT inspection Neck: normal alignment Cardiovascular: normal rate, regular rhythm Respiratory/Chest: lungs clear, normal breath sounds Abdomen: non tender, soft Extremities: non-tender, other - no edema Neurologic: battery builder II-XII grossly normal ADRIANNA JONES Jun 18, 2017 10:44
--- NOTE | 2017-06-18 13:14 | General Progress Note ---
Assessment/Plan Assessment/Plan 1. Syncope, possible seizure vs arrhythmia 2. Hypertension; orthostatic hypotension. 3. Chronic kidney disease stg 5. 4. NSTEMI Her troponin was elevated she has no chest pain renal, cardiac, neuro following BP is high; hydralazine increased Subjective ROS Limited/Unobtainable: Yes Allergies: Coded Allergies: No Known Allergies (Verified , 01/05/09) Objective Last 24 Hour Vital Signs Date Time Temp Pulse Resp B/P (MAP) Pulse Ox O2 Delivery O2 Flow Rate FiO2 06/18/17 12:00 98.2 77 18 171/79 95 Room Air 06/18/17 08:38 88 194/79 06/18/17 08:38 88 194/79 06/18/17 08:00 96.8 91 18 195/102 97 Room Air 06/18/17 06:58 160/79 06/18/17 04:37 203/99 06/18/17 04:00 97.6 86 18 154/85 94 Room Air 06/18/17 04:00 78 06/18/17 00:30 98.1 91 18 139/97 97 Room Air 06/18/17 00:21 185/91 06/18/17 00:00 81 06/17/17 21:26 90 160/77 06/17/17 20:12 98.2 90 18 160/77 96 Room Air 06/17/17 16:00 99 06/17/17 14:42 152/75 Intake and Output 06/17/17 06/18/17 19:00 07:00 Intake Total 890 ml Output Total 200 ml Balance 890 ml -200 ml Intake Oral 890 ml Output Urine Total 200 ml # Voids 3 Laboratory Tests 06/17/17 18:25: Urine Random Total Protein 349H, Urine Random Sodium 69, Urine Creatinine 94.6, Urine Opiates Screen Negative, Urine Barbiturates Screen Negative, Phencyclidine (PCP) Screen Negative, Urine Amphetamines Screen Negative, Urine Benzodiazepines Screen Negative, Urine Cocaine Screen Negative, Urine Marijuana (THC) Screen Negative 06/18/17 06:20: White Blood Count 8.5, Red Blood Count 3.98L, Hemoglobin 9.2L, Hematocrit 29.6L , Mean Corpuscular Volume 74L, Mean Corpuscular Hemoglobin 23.0L, Mean Corpuscular Hemoglobin Concent 30.9L, Red Cell Distribution Width 15.5H, Platelet Count 205, Mean Platelet Volume 7.9, Neutrophils (%) (Auto) 65.3, Lymphocytes (%) (Auto) 22.5, Monocytes (%) (Auto) 7.5, Eosinophils (%) (Auto) 3.8H, Basophils (%) (Auto) 1.0, Sodium Level 144, Potassium Level 3.6, Chloride Level 108H, Carbon Dioxide Level 25, Anion Gap 11, Blood Urea Nitrogen 59H, Creatinine 4.8H, Estimat Glomerular Filtration Rate , Glucose Level 109H, Calcium Level 7.9L, Troponin I 6.988H Height (Feet): 5 Height (Inches): 4.00 Weight (Pounds): 140 General Appearance: no apparent distress Neck: supple Cardiovascular: normal rate Respiratory/Chest: lungs clear LUDA VALDIVIA Jun 18, 2017 13:14
--- NOTE | 2017-06-18 13:42 | Neurology Progress Note ---
Interim History Interim History Interim History Ms. Dietrich feels better. She has had no further episodes of lightheadedness, dizziness, loss of consciousness or seizure-like phenomena. She denies any new neurologic symptoms. She was able to walk to the bathroom earlier. She continues to be cognitively impoverished. She also denies any chest pain shortness of breath ot palpitations. Review of Systems Neuro Review of Systems Benign. Objective Physical Exam Last Vital Signs Date Time Temp Pulse Resp B/P (MAP) Pulse Ox O2 Delivery O2 Flow Rate FiO2 06/18/17 12:00 98.2 77 18 171/79 95 Room Air Laboratory Tests Test 06/17/17 18:25 06/18/17 06:20 Urine Random Total Protein 349 MG/DL (< 11.9) H Urine Random Sodium 69 MEQ/L (20-110) Urine Creatinine 94.6 MG/DL (30.0-125.0) Urine Opiates Screen Negative (NEGATIVE) Urine Barbiturates Screen Negative (NEGATIVE) Phencyclidine (PCP) Screen Negative (NEGATIVE) Urine Amphetamines Screen Negative (NEGATIVE) Urine Benzodiazepines Screen Negative (NEGATIVE) Urine Cocaine Screen Negative (NEGATIVE) Urine Marijuana (THC) Screen Negative (NEGATIVE) White Blood Count 8.5 K/UL (4.8-10.8) Red Blood Count 3.98 M/UL (4.20-5.40) L Hemoglobin 9.2 G/DL (12.0-16.0) L Hematocrit 29.6 % (37.0-47.0) L Mean Corpuscular Volume 74 FL (80-99) L Mean Corpuscular Hemoglobin 23.0 PG (27.0-31.0) L Mean Corpuscular Hemoglobin Concent 30.9 G/DL (32.0-36.0) L Red Cell Distribution Width 15.5 % (11.6-14.8) H Platelet Count 205 K/UL (150-450) Mean Platelet Volume 7.9 FL (6.5-10.1) Neutrophils (%) (Auto) 65.3 % (45.0-75.0) Lymphocytes (%) (Auto) 22.5 % (20.0-45.0) Monocytes (%) (Auto) 7.5 % (1.0-10.0) Eosinophils (%) (Auto) 3.8 % (0.0-3.0) H Basophils (%) (Auto) 1.0 % (0.0-2.0) Sodium Level 144 MMOL/L (136-145) Potassium Level 3.6 MMOL/L (3.5-5.1) Chloride Level 108 MMOL/L (98-107) H Carbon Dioxide Level 25 MMOL/L (21-32) Anion Gap 11 mmol/L (5-15) Blood Urea Nitrogen 59 mg/dL (7-18) H Creatinine 4.8 MG/DL (0.55-1.30) H Estimat Glomerular Filtration Rate mL/min (>60) Glucose Level 109 MG/DL (74-106) H Calcium Level 7.9 MG/DL (8.5-10.1) L Troponin I 6.988 ng/mL (0.000-0.056) Neurologic Exam Objective PHYSICAL EXAMINATION: GENERAL: She is a well-developed, well-nourished, pleasant black lady, lying in bed, in no acute distress. HEAD: Normocephalic and atraumatic. EENT: Examination benign. NECK: No neck rigidity was observed. NEUROLOGIC EXAMINATION: MENTAL STATUS EXAMINATION: She was awake and alert. She was oriented to self only. She had no idea where she was or what the date was. She was able to recall 3/3 words immediately, but could not remember any of them in 1 minute and 3 minutes. She thought that Jackie was president, but could not remember presidents prior to him or following him. Her mathematical skills were impaired. Her visuospatial function was also impaired. SPEECH: She had no dysarthria. LANGUAGE: She had an anomia for low and mid frequency words. CRANIAL NERVE EXAMINATION: II: The visual coppola were intact on confrontation testing. III, IV & : The external ocular movements were full and the pupils 3 mm in diameter, equal, round, regular, and reactive to light. V: She had normal facial sensations and the temporales, masseters, and pterygoids functioned normally. VII: She had a mild right VII central facial paresis. VIII: She was able to hear well bilaterally and had no nystagmus. IX: The palate moved symmetrically on phonation. X: She had no hoarseness of voice. XI: The sternocleidomastoids and trapezii functioned normally. XII: The tongue was in midline without any fasciculations or atrophy. MOTOR SYSTEM: The tone was normal in all four extremities. Examination of muscle mass revealed no focal wasting. Examination of power revealed grade 5/5 power in all muscle groups tested. SENSORY EXAMINATION: She had intact sensations to pinprick, light touch, and graphesthesia. COORDINATION: She performed well on [id number]-[id number] and foic-qy-[id number] testing. REFLEXES: 1+ and bilaterally symmetrical at the biceps, triceps, brachioradialis, and knees. 0 at both ankles. The plantar responses were flexor bilaterally. STANCE: She stood up with contact guard. GAIT: She walked well with contact guard. Impression/Recommendations Diagnostic Impression 1. Ms. Stephanie Dietrich is an 81-year-old, left-handed, black lady, who does have a past history of hypertension, cerebrovascular disease with prior strokes , Alzheimer's disease, and prior episodes of loss of consciousness with some abnormal body jerking, who was sitting up eating lunch and again had an episode of loss of consciousness associated with some abnormal body jerking. As a result of that, she was brought into the [facility] emergency room. 2. She feels well today. She has had no further episodes of lightheadedness, dizziness, loss of consciousness or seizure-like phenomena. She denies any new neurologic symptoms. She continues to be cognitively impoverished. She also denies any cardiac symptoms. 3. On neurological examination, at this time, she is oblivious of why she came here. She has significant problems with orientation, recent and remote memory, visuospatial function, higher cognitive function, and language. She also has a mild right VII central facial paresis and globally diminished deep tendon reflexes. 4. The CT scan of the brain without contrast reveals periventricular deep white matter ischemic changes and an old lacunar infarct in the left basal ganglia. 5. Laboratory test reveal significantly elevated troponins. 6. The patient's history and neurological examination are most compatible with a syncopal episode associated with myoclonus which may be related to an acute coronary syndrome. A less likely etiology would be a questionable seizure. Recommendations 1. Continue present management. 2. Await EEG to evaluate the patient for ongoing ictal or interictal phenomena. 3. Await laboratory data to evaluate the patient for syncope and seizures. 4. Cardiac management as per Dr. Franklin. 5. Observe closely. Oswaldo Akbar M.D., M.S.P.H. OSWALDO AKBAR Jun 18, 2017 13:42
[2017-06-18] MEDS ORDERED: HydrALAZINE 50mg tab ORAL PRN (16:30)
--- NOTE | 2017-06-18 17:17 | Electroencephalogram ---
DATE OF PROCEDURE: 06/17/2017 REQUESTING PHYSICIAN: Erik Gonzalez M.D. HISTORY: This EEG was performed on an 81-year-old lady, who was noted to have a possible seizure. The purpose of this EEG was to evaluate the patient for the degree and type of encephalopathy and to determine the type of seizure disorder. TECHNICAL NOTE: This EEG was performed on [employer] with electrodes placed on scalp according to the International 10-20 system. [id number] and qabei-[id number] montages were used. The EEG was technically satisfactory and was performed in the awake and drowsy states. OBSERVATION: In the best awake state, the background activity consisted of 6-6.5 Hz theta activity. Drowsiness was characterized by slowing of the background in the 4-5 Hz theta range with intermixed delta frequencies. Triphasic waveforms with an anterior to posterior gradient were also seen. During the drowsy state, F7-T3 sharp and slow wave discharges were seen. IMPRESSION: This is an abnormal EEG characterized by: 1. Slowing of the background in the 6-6.5 Hz theta range in the best-awake state. 2. The presence of F7-T3 sharp and slow wave discharges seen during drowsiness. 3. The presence of triphasic waveforms seen during drowsiness. COMMENT: This study is consistent with: 1. An encephalopathy of a moderate degree, most probably with a toxic metabolic component as evidenced by the triphasic waveforms. 2. A left temporal epileptogenic focus involving the left anterior and mid temporal regions. Oswaldo Adorno M.D., M.S.P.H. DR: Rehan JOB#: [id number] [facility] CENTERKylee
[2017-06-19 04:00] VITALS: BP 187/89
[2017-06-19] MEDS: HydrALAZINE 50mg tab ORAL SCH ×3 (06:43→22:28)
[2017-06-19 07:33] LABS: BASOPHILS % (AUTO) 1.1 % (0.0-2.0); EOSINOPHILS % (AUTO) 6.3 % (0.0-3.0); HEMATOCRIT 32.2 % (37.0-47.0); HEMOGLOBIN 9.8 G/DL (12.0-16.0); MEAN CORPUSCULAR VOLUME 74 FL (80-99); MONOCYTES % (AUTO) 9.2 % (1.0-10.0); NEUTROPHILS % (AUTO) 55.4 % (45.0-75.0); PLATELET COUNT 202 K/UL (150-450); RED BLOOD COUNT 4.34 M/UL (4.20-5.40); RED CELL DISTRIBUTION WIDTH 15.5 % (11.6-14.8); WHITE BLOOD COUNT 6.4 K/UL (4.8-10.8)
[2017-06-19 07:45] LABS: ALANINE AMINOTRANSFERASE 19 U/L (12-78); ALBUMIN 2.7 G/DL (3.4-5.0); ALBUMIN/GLOBULIN RATIO 0.7 (1.0-2.7); ALKALINE PHOSPHATASE 53 U/L (46-116); ANION GAP 8 mmol/L (5-15); ASPARTATE AMINO TRANSFERASE 38 U/L (15-37); BILIRUBIN,TOTAL 0.3 MG/DL (0.2-1.0); BLOOD UREA NITROGEN 61 mg/dL (7-18); CALCIUM 7.7 MG/DL (8.5-10.1); CARBON DIOXIDE 27 MMOL/L (21-32); CHLORIDE 107 MMOL/L (98-107); CREATININE 4.7 MG/DL (0.55-1.30); POTASSIUM 3.6 MMOL/L (3.5-5.1); SODIUM 142 MMOL/L (136-145)
[2017-06-19 08:00] VITALS: BP 151/79
[2017-06-19] MEDS: Sertraline 50mg tab ORAL SCH (08:21)
[2017-06-19] MEDS: Metoprolol 25mg tab ORAL SCH ×2 (08:21→21:03)
[2017-06-19] MEDS: Aspirin EC 81mg tab ORAL SCH (08:30)
--- NOTE | 2017-06-19 10:21 | Nephrology Progress Note ---
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 Subjective Constitutional: Reports: no symptoms HEENT: Reports: no symptoms Genitourinary: Reports: no symptoms Neurologic/Psychiatric: Reports: no symptoms Objective Objective Last 24 Hour Vital Signs Date Time Temp Pulse Resp B/P (MAP) Pulse Ox O2 Delivery O2 Flow Rate FiO2 06/19/17 08:21 77 187/96 06/19/17 08:21 77 187/96 06/19/17 08:00 97.9 74 19 151/79 96 06/19/17 06:43 187/96 06/19/17 04:00 97.9 75 19 187/89 96 06/19/17 04:00 77 06/19/17 00:00 75 06/18/17 22:24 137/62 06/18/17 20:36 78 167/85 06/18/17 20:12 97.7 78 20 167/85 97 Room Air 06/18/17 20:00 81 06/18/17 18:30 161/83 06/18/17 16:00 97.3 68 18 162/93 99 Room Air 06/18/17 16:00 79 06/18/17 13:58 154/67 06/18/17 12:00 98.2 77 18 171/79 95 Room Air 06/18/17 12:00 77 Intake and Output 06/18/17 06/19/17 19:00 07:00 Intake Total 630 ml 240 ml Balance 630 ml 240 ml Intake Oral 630 ml 240 ml # Voids 1 2 Laboratory Tests 06/19/17 04:35: White Blood Count 6.4, Red Blood Count 4.34, Hemoglobin 9.8L, Hematocrit 32.2L, Mean Corpuscular Volume 74L, Mean Corpuscular Hemoglobin 22.5L, Mean Corpuscular Hemoglobin Concent 30.4L, Red Cell Distribution Width 15.5H, Platelet Count 202, Mean Platelet Volume 6.5, Neutrophils (%) (Auto) 55.4, Lymphocytes (%) (Auto) 28.0, Monocytes (%) (Auto) 9.2, Eosinophils (%) (Auto) 6.3H, Basophils (%) (Auto) 1.1, Sodium Level 142, Potassium Level 3.6, Chloride Level 107, Carbon Dioxide Level 27, Anion Gap 8, Blood Urea Nitrogen 61H, Creatinine 4.7H, Estimat Glomerular Filtration Rate , Glucose Level 103, Calcium Level 7.7L, Total Bilirubin 0.3, Aspartate Amino Transf (AST/SGOT) 38H, Alanine Aminotransferase (ALT/SGPT) 19, Alkaline Phosphatase 53, Total Protein 6.8, Albumin 2.7L, Globulin 4.1, Albumin/Globulin Ratio 0.7L Height (Feet): 5 Height (Inches): 4.00 Weight (Pounds): 140 General Appearance: no apparent distress, alert EENT: normal ENT inspection Neck: non-tender, normal alignment, supple Cardiovascular: normal rate, regular rhythm Respiratory/Chest: lungs clear, normal breath sounds Abdomen: non tender, soft Extremities: other - no edema 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
[2017-06-19 12:00] VITALS: BP 153/78
[2017-06-19 13:20] VITALS: BP 153/78
--- NOTE | 2017-06-19 14:19 | Neurology Progress Note ---
Interim History Interim History Interim History Ms. Dietrich feels better. She has had no further episodes of lightheadedness, dizziness, loss of consciousness or seizure-like phenomena. She denies any new neurologic symptoms. She was able to walk to the bathroom earlier. She continues to be cognitively impoverished. She also denies any chest pain shortness of breath ot palpitations. She is eager to go "home." Review of Systems Neuro Review of Systems Benign. Objective Physical Exam Last Vital Signs Date Time Temp Pulse Resp B/P (MAP) Pulse Ox O2 Delivery O2 Flow Rate FiO2 06/19/17 13:55 153/78 06/19/17 12:00 70 06/19/17 12:00 98.4 20 96 06/18/17 20:12 Room Air Laboratory Tests Test 06/19/17 04:35 White Blood Count 6.4 K/UL (4.8-10.8) Red Blood Count 4.34 M/UL (4.20-5.40) Hemoglobin 9.8 G/DL (12.0-16.0) L Hematocrit 32.2 % (37.0-47.0) L Mean Corpuscular Volume 74 FL (80-99) L Mean Corpuscular Hemoglobin 22.5 PG (27.0-31.0) L Mean Corpuscular Hemoglobin Concent 30.4 G/DL (32.0-36.0) L Red Cell Distribution Width 15.5 % (11.6-14.8) H Platelet Count 202 K/UL (150-450) Mean Platelet Volume 6.5 FL (6.5-10.1) Neutrophils (%) (Auto) 55.4 % (45.0-75.0) Lymphocytes (%) (Auto) 28.0 % (20.0-45.0) Monocytes (%) (Auto) 9.2 % (1.0-10.0) Eosinophils (%) (Auto) 6.3 % (0.0-3.0) H Basophils (%) (Auto) 1.1 % (0.0-2.0) Sodium Level 142 MMOL/L (136-145) Potassium Level 3.6 MMOL/L (3.5-5.1) Chloride Level 107 MMOL/L (98-107) Carbon Dioxide Level 27 MMOL/L (21-32) Anion Gap 8 mmol/L (5-15) Blood Urea Nitrogen 61 mg/dL (7-18) H Creatinine 4.7 MG/DL (0.55-1.30) H Estimat Glomerular Filtration Rate mL/min (>60) Glucose Level 103 MG/DL (74-106) Calcium Level 7.7 MG/DL (8.5-10.1) L Total Bilirubin 0.3 MG/DL (0.2-1.0) Aspartate Amino Transf (AST/SGOT) 38 U/L (15-37) H Alanine Aminotransferase (ALT/SGPT) 19 U/L (12-78) Alkaline Phosphatase 53 U/L (46-116) Total Protein 6.8 G/DL (6.4-8.2) Albumin 2.7 G/DL (3.4-5.0) L Globulin 4.1 g/dL Albumin/Globulin Ratio 0.7 (1.0-2.7) L Neurologic Exam Objective PHYSICAL EXAMINATION: GENERAL: She is a well-developed, well-nourished, pleasant black lady, lying in bed, in no acute distress. HEAD: Normocephalic and atraumatic. EENT: Examination benign. NECK: No neck rigidity was observed. NEUROLOGIC EXAMINATION: MENTAL STATUS EXAMINATION: She was awake and alert. She was oriented to self and May only. She had no idea where she was or what the date and year were. She was able to recall 3/ 3 words immediately, but could not remember any of them in 1 minute and 3 minutes. She was unable to tell me who the present or prior presidents were. Her mathematical skills were impaired. Her visuospatial function was also impaired. SPEECH: She had no dysarthria. LANGUAGE: She had an anomia for low and mid frequency words. CRANIAL NERVE EXAMINATION: II: The visual coppola were intact on confrontation testing. III, IV & : The external ocular movements were full and the pupils 3 mm in diameter, equal, round, regular, and reactive to light. V: She had normal facial sensations and the temporales, masseters, and pterygoids functioned normally. VII: She had a mild right VII central facial paresis. VIII: She was able to hear well bilaterally and had no nystagmus. IX: The palate moved symmetrically on phonation. X: She had no hoarseness of voice. XI: The sternocleidomastoids and trapezii functioned normally. XII: The tongue was in midline without any fasciculations or atrophy. MOTOR SYSTEM: The tone was normal in all four extremities. Examination of muscle mass revealed no focal wasting. Examination of power revealed grade 5/5 power in all muscle groups tested. SENSORY EXAMINATION: She had intact sensations to pinprick, light touch, and graphesthesia. COORDINATION: She performed well on [id number]-zv-feca and copu-gu-uqqy testing. REFLEXES: 1+ and bilaterally symmetrical at the biceps, triceps, brachioradialis, and knees. 0 at both ankles. The plantar responses were flexor bilaterally. STANCE: She stood up with contact guard. GAIT: She walked well with contact guard. Impression/Recommendations Diagnostic Impression 1. Ms. Stephanie Dietrich is an 81-year-old, left-handed, black lady, who does have a past history of hypertension, cerebrovascular disease with prior strokes , Alzheimer's disease, and prior episodes of loss of consciousness with some abnormal body jerking, who was sitting up eating lunch and again had an episode of loss of consciousness associated with some abnormal body jerking. As a result of that, she was brought into the [facility] emergency room. 2. She feels well today. She has had no further episodes of lightheadedness, dizziness, loss of consciousness or seizure-like phenomena. She denies any new neurologic symptoms. She continues to be cognitively impoverished. She also denies any cardiac symptoms. 3. On neurological examination, at this time, she is oblivious of why she came here. She has significant problems with orientation, recent and remote memory, visuospatial function, higher cognitive function, and language. She also has a mild right VII central facial paresis and globally diminished deep tendon reflexes. 4. The CT scan of the brain without contrast reveals periventricular deep white matter ischemic changes and an old lacunar infarct in the left basal ganglia. 5. Laboratory test reveal significantly elevated troponins. 6. The EEG revealed a left temporal epileptogenic focus and a moderate metabolic encephalopathy. 7. The patient's history and neurological examination are most compatible with a syncopal episode associated with myoclonus which may be related to an acute coronary syndrome. A less likely etiology would be a seizure. Recommendations 1. Continue present management. 2. Keppra 500 mg PO q 12 Hours. 3. Cardiac management as per Dr. Franklin. 4. Observe closely. Oswaldo Akbar M.D., M.S.P.[facility]. OSWALDO AKBAR Jun 19, 2017 14:19
[2017-06-19 16:00] VITALS: BP 127/88
[2017-06-19 20:00] VITALS: BP 166/96
--- NOTE | 2017-06-19 21:07 | Pulmonology Progress Note ---
Assessment/Plan Assessment/Plan 1. Syncope, possible seizure vs arrhythmia 2. Hypertension; orthostatic hypotension. 3. Chronic kidney disease stg 5. 4. NSTEMI Her troponin was elevated, but trending down she has no chest pain renal, cardiac, neuro following BP is high; hydralazine increased med mgmt per cards pt anxious for dc, will dw consultants AED and monitor for seizure activity Subjective Constitutional: Reports: no symptoms HEENT: Repors: no symptoms Respiratory: Reports: no symptoms Cardiovascular: Reports: no symptoms Allergies: Coded Allergies: No Known Allergies (Verified , 01/05/09) Subjective awake toelrating po no cp nv or bleeding states she is getting oob on o2 no fever noted Objective Last 24 Hour Vital Signs Date Time Temp Pulse Resp B/P (MAP) Pulse Ox O2 Delivery O2 Flow Rate FiO2 06/19/17 20:00 98.1 77 18 166/96 97 Room Air 06/19/17 16:00 98.1 75 18 127/88 98 75 06/19/17 16:00 65 06/19/17 13:55 153/78 06/19/17 13:20 153/78 06/19/17 12:00 70 06/19/17 12:00 98.4 68 20 153/78 96 68 06/19/17 08:21 77 187/96 06/19/17 08:21 77 187/96 06/19/17 08:00 76 06/19/17 08:00 97.9 74 19 151/79 96 06/19/17 06:43 187/96 06/19/17 04:00 97.9 75 19 187/89 96 06/19/17 04:00 77 06/19/17 00:00 75 06/18/17 22:24 137/62 Intake and Output 06/18/17 06/19/17 19:00 07:00 Intake Total 630 ml 240 ml Balance 630 ml 240 ml Intake Oral 630 ml 240 ml # Voids 1 2 General Appearance: WD/WN Respiratory/Chest: lungs clear Cardiovascular: normal rate, regular rhythm, murmur systolic Abdomen: soft, non tender, no organomegaly Extremities: no cyanosis, no clubbing Skin: no rash, no lesions Neurologic/Psychiatric: alert, oriented x 3 Laboratory Tests 06/19/17 04:35: White Blood Count 6.4, Red Blood Count 4.34, Hemoglobin 9.8L, Hematocrit 32.2L, Mean Corpuscular Volume 74L, Mean Corpuscular Hemoglobin 22.5L, Mean Corpuscular Hemoglobin Concent 30.4L, Red Cell Distribution Width 15.5H, Platelet Count 202, Mean Platelet Volume 6.5, Neutrophils (%) (Auto) 55.4, Lymphocytes (%) (Auto) 28.0, Monocytes (%) (Auto) 9.2, Eosinophils (%) (Auto) 6.3H, Basophils (%) (Auto) 1.1, Sodium Level 142, Potassium Level 3.6, Chloride Level 107, Carbon Dioxide Level 27, Anion Gap 8, Blood Urea Nitrogen 61H, Creatinine 4.7H, Estimat Glomerular Filtration Rate , Glucose Level 103, Calcium Level 7.7L, Total Bilirubin 0.3, Aspartate Amino Transf (AST/SGOT) 38H, Alanine Aminotransferase (ALT/SGPT) 19, Alkaline Phosphatase 53, Total Protein 6.8, Albumin 2.7L, Globulin 4.1, Albumin/Globulin Ratio 0.7L Current Medications Medications (Trade) Dose Ordered Sig/Edgar Route PRN Reason Start Time Stop Time Status Last Admin Dose Admin Acetaminophen (Tylenol) 650 mg Q6H PRN ORAL Mild Pain/Temp > 100.5 06/16/17 17:15 07/16/17 17:14 Amlodipine Besylate (Norvasc) 10 mg DAILY ORAL 06/17/17 09:00 07/17/17 08:59 06/19/17 08:21 Aspirin (Ecotrin) 81 mg DAILY ORAL 06/17/17 09:00 07/17/17 08:59 06/19/17 08:30 Atorvastatin Calcium (Lipitor) 10 mg BEDTIME ORAL 06/16/17 21:00 07/16/17 20:59 06/18/17 20:36 Epoetin Tuan (Procrit (for ESRD on dialysis)) 10,000 units TUE-TUE-TUE SUBQ 06/17/17 21:00 07/17/17 20:59 06/17/17 21:27 Hydralazine HCl (Apresoline) 50 mg Q4H PRN ORAL For High Blood Pressure 06/18/17 16:30 07/18/17 16:29 Hydralazine HCl (Apresoline) 100 mg EVERY 8 HOURS ORAL 06/18/17 14:00 07/18/17 13:59 06/19/17 13:55 Levetiracetam (Keppra) 500 mg Q12HR ORAL 06/18/17 21:00 07/18/17 20:59 06/19/17 08:20 Metoprolol Tartrate (Lopressor) 25 mg Q12HR ORAL 06/17/17 09:00 07/17/17 08:59 06/19/17 08:21 Quetiapine Fumarate (SEROquel) 25 mg DAILY ORAL 06/17/17 09:00 07/17/17 08:59 06/19/17 08:21 Quetiapine Fumarate (SEROquel) 50 mg QHS ORAL 06/16/17 21:00 07/16/17 20:59 06/18/17 20:37 Sertraline HCl (Zoloft) 50 mg DAILY ORAL 06/17/17 09:00 07/17/17 08:59 06/19/17 08:21 TAYLOR SHARPE DO Jun 19, 2017 21:07
[2017-06-20] VITALS: BP 147/68
[2017-06-20 04:00] VITALS: BP 161/91
[2017-06-20] MEDS: HydrALAZINE 50mg tab ORAL SCH ×3 (06:26→22:43)
[2017-06-20 08:00] VITALS: BP 186/90
[2017-06-20] MEDS: Metoprolol 25mg tab ORAL SCH ×2 (08:37→21:16)
[2017-06-20] MEDS: Sertraline 50mg tab ORAL SCH (08:37)
[2017-06-20] MEDS: Aspirin EC 81mg tab ORAL SCH (08:38)
--- NOTE | 2017-06-20 10:37 | Nephrology Progress Note ---
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 Subjective ROS Limited/Unobtainable: Yes Objective Objective Last 24 Hour Vital Signs Date Time Temp Pulse Resp B/P (MAP) Pulse Ox O2 Delivery O2 Flow Rate FiO2 06/20/17 08:38 97 186/90 06/20/17 08:37 97 186/90 06/20/17 08:00 96.5 75 18 186/90 97 Room Air 06/20/17 08:00 73 06/20/17 06:26 161/91 06/20/17 04:00 70 06/20/17 04:00 98.2 72 18 161/91 98 Room Air 06/20/17 00:00 98.1 74 18 147/68 98 Room Air 06/20/17 00:00 69 06/19/17 22:28 154/71 06/19/17 21:03 77 166/96 06/19/17 20:00 98.1 77 18 166/96 97 Room Air 06/19/17 20:00 75 06/19/17 16:00 98.1 75 18 127/88 98 75 06/19/17 16:00 65 06/19/17 13:55 153/78 06/19/17 13:20 153/78 06/19/17 12:00 70 06/19/17 12:00 98.4 68 20 153/78 96 68 Intake and Output 06/19/17 06/20/17 19:00 07:00 Intake Total 480 ml 360 ml Balance 480 ml 360 ml Intake Oral 480 ml 360 ml # Voids 3 1 Height (Feet): 5 Height (Inches): 4.00 Weight (Pounds): 140 General Appearance: no apparent distress EENT: normal ENT inspection Neck: normal alignment Cardiovascular: normal rate, regular rhythm Respiratory/Chest: lungs clear, normal breath sounds Abdomen: non tender, soft Extremities: other - no edema 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
--- NOTE | 2017-06-20 11:41 | Neurology Progress Note ---
Interim History Interim History Interim History Ms. Dietrich feels well She has had no further episodes of lightheadedness, dizziness, loss of consciousness or seizure-like phenomena. She denies any new neurologic symptoms. She was able to walk to the bathroom a few times yesterday. She continues to be cognitively impoverished. She denies any chest pain shortness of breath or palpitations. She jus woke up today. Review of Systems Neuro Review of Systems Benign. Objective Physical Exam Last Vital Signs Date Time Temp Pulse Resp B/P (MAP) Pulse Ox O2 Delivery O2 Flow Rate FiO2 06/20/17 08:38 97 186/90 06/20/17 08:00 96.5 18 97 Room Air Neurologic Exam Objective PHYSICAL EXAMINATION: GENERAL: She is a well-developed, well-nourished, pleasant black lady, lying in bed, in no acute distress. HEAD: Normocephalic and atraumatic. EENT: Examination benign. NECK: No neck rigidity was observed. NEUROLOGIC EXAMINATION: MENTAL STATUS EXAMINATION: She was awake and alert. She was oriented to self only. She had no idea where she was or what the date, month and year were. She was able to recall 3/3 words immediately, but could not remember any of them in 1 minute and 3 minutes. She was unable to tell me who the present or prior presidents were. Her mathematical skills were impaired. Her visuospatial function was also impaired. SPEECH: She had no dysarthria. LANGUAGE: She had an anomia for low and mid frequency words. CRANIAL NERVE EXAMINATION: II: The visual coppola were intact on confrontation testing. III, IV & : The external ocular movements were full and the pupils 3 mm in diameter, equal, round, regular, and reactive to light. V: She had normal facial sensations and the temporales, masseters, and pterygoids functioned normally. VII: She had a mild right VII central facial paresis. VIII: She was able to hear well bilaterally and had no nystagmus. IX: The palate moved symmetrically on phonation. X: She had no hoarseness of voice. XI: The sternocleidomastoids and trapezii functioned normally. XII: The tongue was in midline without any fasciculations or atrophy. MOTOR SYSTEM: The tone was normal in all four extremities. Examination of muscle mass revealed no focal wasting. Examination of power revealed grade 5/5 power in all muscle groups tested. SENSORY EXAMINATION: She had intact sensations to pinprick, light touch, and graphesthesia. COORDINATION: She performed well on cxexhk-ed-spvv and rkbs-fd-oqqv testing. REFLEXES: 1+ and bilaterally symmetrical at the biceps, triceps, brachioradialis, and knees. 0 at both ankles. The plantar responses were flexor bilaterally. STANCE: She stood up with contact guard. GAIT: She walked well with contact guard. Impression/Recommendations Diagnostic Impression 1. Ms. Stephanie Dietrich is an 81-year-old, left-handed, black lady, who does have a past history of hypertension, cerebrovascular disease with prior strokes , Alzheimer's disease, and prior episodes of loss of consciousness with some abnormal body jerking, who was sitting up eating lunch and again had an episode of loss of consciousness associated with some abnormal body jerking. As a result of that, she was brought into the [facility] emergency room. 2. She feels well today. She has had no further episodes of lightheadedness, dizziness, loss of consciousness or seizure-like phenomena. She denies any new neurologic symptoms. She continues to be cognitively impoverished. She also denies any cardiac symptoms. 3. On neurological examination, at this time, she is oblivious of why she came here. She has significant problems with orientation, recent and remote memory, visuospatial function, higher cognitive function, and language. She also has a mild right VII central facial paresis and globally diminished deep tendon reflexes. 4. The CT scan of the brain without contrast reveals periventricular deep white matter ischemic changes and an old lacunar infarct in the left basal ganglia. 5. Laboratory test reveal significantly elevated troponins. 6. The EEG revealed a left temporal epileptogenic focus and a moderate metabolic encephalopathy. 7. The patient's history and neurological examination are most compatible with a syncopal episode associated with myoclonus which may be related to an acute coronary syndrome. A less likely etiology would be a seizure. Recommendations 1. Continue present management. 2. Keppra 500 mg PO q 12 Hours. 3. Cardiac management as per Dr. Franklin. 4. Observe closely. Berkley Akbar M.D., MKobySJessica. BERKLEY AKBAR Jun 20, 2017 11:41
[2017-06-20 12:00] VITALS: BP 148/71
[2017-06-20 16:00] VITALS: BP 135/75
[2017-06-20 20:00] VITALS: BP 155/79
--- NOTE | 2017-06-20 20:39 | Pulmonology Progress Note ---
Assessment/Plan Assessment/Plan 1. Syncope, possible seizure vs arrhythmia 2. Hypertension; orthostatic hypotension. 3. Chronic kidney disease stg 5. 4. NSTEMI she has no chest pain renal, cardiac, neuro following BP is high; hydralazine increased med mgmt per cards pt anxious for dc, will dw consultants AED and monitor for seizure activity Subjective Constitutional: Reports: no symptoms HEENT: Repors: no symptoms Respiratory: Reports: no symptoms Cardiovascular: Reports: no symptoms Gastrointestinal/Abdominal: Reports: no symptoms Allergies: Coded Allergies: No Known Allergies (Verified , 01/05/09) Subjective awake toelrating po no cp nv or bleeding states she is getting oob on o2 no fever noted Objective Last 24 Hour Vital Signs Date Time Temp Pulse Resp B/P (MAP) Pulse Ox O2 Delivery O2 Flow Rate FiO2 06/20/17 16:00 70 06/20/17 16:00 97.1 74 18 135/75 98 Room Air 06/20/17 14:51 148/71 06/20/17 12:00 64 06/20/17 12:00 96.7 68 18 148/71 98 Room Air 06/20/17 08:38 97 186/90 06/20/17 08:37 97 186/90 06/20/17 08:00 96.5 75 18 186/90 97 Room Air 06/20/17 08:00 73 06/20/17 06:26 161/91 06/20/17 04:00 70 06/20/17 04:00 98.2 72 18 161/91 98 Room Air 06/20/17 00:00 98.1 74 18 147/68 98 Room Air 06/20/17 00:00 69 06/19/17 22:28 154/71 06/19/17 21:03 77 166/96 Intake and Output 06/19/17 06/20/17 19:00 07:00 Intake Total 480 ml 360 ml Balance 480 ml 360 ml Intake Oral 480 ml 360 ml # Voids 3 1 General Appearance: WD/WN HEENT: atraumatic, anicteric Respiratory/Chest: lungs clear, normal breath sounds Cardiovascular: normal rate, regular rhythm, murmur systolic Abdomen: soft, non tender, no organomegaly Extremities: no edema Neurologic/Psychiatric: no motor/sensory deficits, abnormal gait, alert, oriented x 3 Current Medications Medications (Trade) Dose Ordered Sig/Edgar Route PRN Reason Start Time Stop Time Status Last Admin Dose Admin Acetaminophen (Tylenol) 650 mg Q6H PRN ORAL Mild Pain/Temp > 100.5 06/16/17 17:15 07/16/17 17:14 Amlodipine Besylate (Norvasc) 10 mg DAILY ORAL 06/17/17 09:00 07/17/17 08:59 06/20/17 08:38 Aspirin (Ecotrin) 81 mg DAILY ORAL 06/17/17 09:00 07/17/17 08:59 06/20/17 08:38 Atorvastatin Calcium (Lipitor) 10 mg BEDTIME ORAL 06/16/17 21:00 07/16/17 20:59 06/19/17 21:03 Epoetin Tuan (Procrit (for ESRD on dialysis)) 10,000 units SUBQ 06/17/17 21:00 07/17/17 20:59 06/17/17 21:27 Hydralazine HCl (Apresoline) 50 mg Q4H PRN ORAL For High Blood Pressure 06/18/17 16:30 07/18/17 16:29 Hydralazine HCl (Apresoline) 100 mg EVERY 8 HOURS ORAL 06/18/17 14:00 07/18/17 13:59 06/20/17 14:51 Levetiracetam (Keppra) 500 mg Q12HR ORAL 06/18/17 21:00 07/18/17 20:59 06/20/17 08:37 Metoprolol Tartrate (Lopressor) 25 mg Q12HR ORAL 06/17/17 09:00 07/17/17 08:59 06/20/17 08:37 Quetiapine Fumarate (SEROquel) 25 mg DAILY ORAL 06/17/17 09:00 07/17/17 08:59 06/20/17 08:37 Quetiapine Fumarate (SEROquel) 50 mg QHS ORAL 06/16/17 21:00 07/16/17 20:59 06/19/17 21:03 Sertraline HCl (Zoloft) 50 mg DAILY ORAL 06/17/17 09:00 07/17/17 08:59 06/20/17 08:37 TAYLOR SHARPE DO Jun 20, 2017 20:39
[2017-06-20] MEDS: Epogen (for ESRD on dialysis) SUBQ SCH (21:00)
[2017-06-21 00:17] VITALS: BP 147/69
--- NOTE | 2017-06-21 01:45 | Progress Note ---
DATE: 06/20/2017 SUBJECTIVE: The patient is an unreliable historian but has no chest pain or shortness of breath. Blood pressure elevations were noted earlier today, now improved with adjusted therapy. OBJECTIVE: VITAL SIGNS: Blood pressure is 147/69, pulse rate 65, respiratory rate 20. NECK: Supple. LUNGS: Clear. CARDIAC: Regular. Normal S1, S2 with a fourth heart sound. ABDOMEN: Soft. EXTREMITIES: No edema. IMPRESSION: 1. Acute [id number]-[id number] myocardial infarction. 2. Moderate protein-calorie malnutrition. 3. Chronic kidney disease, stage 5. 4. Hypertensive heart disease with episodes of malignant range blood pressure. PLAN: 1. Continue beta-andrez and amlodipine. 2. Anti-platelet therapy with aspirin. 3. Anti-lipid therapy with statin drug. 4. Titrate hydralazine for optimal blood pressure control. Kyle Franklin M.D. DR: Rita JOB#: [id number] CC:
[2017-06-21 04:16] VITALS: BP 147/78
[2017-06-21] MEDS: HydrALAZINE 50mg tab ORAL SCH (07:00)
[2017-06-21 08:00] VITALS: BP 157/86
[2017-06-21] MEDS: Aspirin EC 81mg tab ORAL SCH (08:42)
[2017-06-21] MEDS: Sertraline 50mg tab ORAL SCH (08:42)
[2017-06-21] MEDS: Metoprolol 25mg tab ORAL SCH (08:43)
[2017-06-21 08:52] LABS: BASOPHILS % (AUTO) 1.3 % (0.0-2.0); EOSINOPHILS % (AUTO) 5.9 % (0.0-3.0); HEMATOCRIT 31.2 % (37.0-47.0); HEMOGLOBIN 9.5 G/DL (12.0-16.0); LYMPHOCYTES % (AUTO) 32.4 % (20.0-45.0); MEAN CORPUSCULAR VOLUME 73 FL (80-99); MONOCYTES % (AUTO) 12.2 % (1.0-10.0); NEUTROPHILS % (AUTO) 48.2 % (45.0-75.0); PLATELET COUNT 250 K/UL (150-450); RED BLOOD COUNT 4.25 M/UL (4.20-5.40); WHITE BLOOD COUNT 4.9 K/UL (4.8-10.8)
[2017-06-21 09:15] LABS: ALANINE AMINOTRANSFERASE 15 U/L (12-78); ALBUMIN 2.7 G/DL (3.4-5.0); ALBUMIN/GLOBULIN RATIO 0.7 (1.0-2.7); ALKALINE PHOSPHATASE 52 U/L (46-116); ANION GAP 9 mmol/L (5-15); ASPARTATE AMINO TRANSFERASE 19 U/L (15-37); BILIRUBIN,TOTAL 0.3 MG/DL (0.2-1.0); BLOOD UREA NITROGEN 59 mg/dL (7-18); CALCIUM 7.7 MG/DL (8.5-10.1); CARBON DIOXIDE 26 MMOL/L (21-32); CHLORIDE 104 MMOL/L (98-107); CREATININE 4.7 MG/DL (0.55-1.30); POTASSIUM 3.4 MMOL/L (3.5-5.1); SODIUM 139 MMOL/L (136-145)
--- NOTE | 2017-06-21 09:30 | Nephrology Progress Note ---
Assessment/Plan Problem List: (1) Myocardial infarct (2) Anemia in chronic kidney disease (3) CKD (chronic kidney disease) stage 5, GFR less than 15 ml/min Plan cardiac rehabilitation program director, epogen,renal func stable, bp meds per cardiol Subjective ROS Limited/Unobtainable: Yes Objective Objective Last 24 Hour Vital Signs Date Time Temp Pulse Resp B/P (MAP) Pulse Ox O2 Delivery O2 Flow Rate FiO2 06/21/17 08:43 75 157/86 06/21/17 08:43 75 157/86 06/21/17 07:00 174/86 06/21/17 04:16 98.1 75 20 147/78 97 Room Air 06/21/17 04:00 76 06/21/17 00:17 97.5 65 20 147/69 93 Room Air 06/21/17 00:00 76 06/20/17 22:43 120/70 06/20/17 21:16 70 135/75 06/20/17 20:00 97.7 74 20 155/79 95 Room Air 06/20/17 20:00 75 06/20/17 16:00 70 06/20/17 16:00 97.1 74 18 135/75 98 Room Air 06/20/17 14:51 148/71 06/20/17 12:00 64 06/20/17 12:00 96.7 68 18 148/71 98 Room Air Intake and Output 06/20/17 06/21/17 19:00 07:00 Intake Total 480 ml Balance 480 ml Intake Oral 480 ml # Voids 1 2 Laboratory Tests 06/21/17 08:22: White Blood Count 4.9, Red Blood Count 4.25, Hemoglobin 9.5L, Hematocrit 31.2L, Mean Corpuscular Volume 73L, Mean Corpuscular Hemoglobin 22.3L, Mean Corpuscular Hemoglobin Concent 30.4L, Red Cell Distribution Width 15.0H, Platelet Count 250, Mean Platelet Volume 6.5, Neutrophils (%) (Auto) 48.2, Lymphocytes (%) (Auto) 32.4, Monocytes (%) (Auto) 12.2H, Eosinophils (%) (Auto) 5.9H, Basophils (%) (Auto) 1.3, Sodium Level 139, Potassium Level 3.4L, Chloride Level 104, Carbon Dioxide Level 26, Anion Gap 9, Blood Urea Nitrogen 59H, Creatinine 4.7H, Estimat Glomerular Filtration Rate , Glucose Level 110H, Calcium Level 7.7L, Total Bilirubin 0.3, Aspartate Amino Transf (AST/SGOT) 19, Alanine Aminotransferase (ALT/SGPT) 15, Alkaline Phosphatase 52, Troponin I 1.534H, Pro-B-Type Natriuretic Peptide 4786H, Total Protein 6.7, Albumin 2.7L, Globulin 4.0, Albumin/Globulin Ratio 0.7L Height (Feet): 5 Height (Inches): 4.00 Weight (Pounds): 140 General Appearance: no apparent distress EENT: normal ENT inspection Neck: normal alignment Cardiovascular: normal rate, regular rhythm Respiratory/Chest: lungs clear, normal breath sounds Abdomen: non tender, soft 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
[2017-06-21 12:00] VITALS: BP 115/73
[2017-06-21] MEDS ORDERED: APRESOLINE50 MG ORAL (12:58)
[2017-06-21] MEDS ORDERED: PROCRIT20000 UNI2 SUBQ (12:58)
[2017-06-21] MEDS ORDERED: LOPRESSOR25 M1 ORAL (12:58)
[2017-06-21] MEDS ORDERED: KEPPRA500 M3 ORAL (12:58)
--- NOTE | 2017-06-22 04:00 | Progress Note ---
DATE: 06/21/2017 SUBJECTIVE: The patient remains comfortable in bed. She ambulates to the bathroom. She is in no respiratory distress. She does not have any shortness of breath with activity. This was reviewed with her son at bedside. OBJECTIVE: VITAL SIGNS: Blood pressure 147/78 to 174/86, heart rate 75, respiratory rate 20, afebrile. NECK: Supple. LUNGS: Clear. CARDIAC: Regular. Normal S1, S2 with a fourth heart sound. ABDOMEN: Soft. EXTREMITIES: No edema. LABORATORY DATA: Natriuretic peptide is 4700. IMPRESSION: 1. Acute myocardial infarction. 2. Chronic kidney disease, stage 5. 3. Anemia of chronic kidney disease. 4. Elevated natriuretic peptide assay due to renal failure. 5. Chronic diastolic congestive heart failure. 6. Cerebrovascular disease with dementia. 7. Hypertensive heart disease with malignant-range blood pressure. PLAN: 1. Outpatient followup. 2. Medication regimen reviewed. 3. Antihypertensives advanced. 4. Orthostatic precautions in place. 5. Maintain anti-platelet therapy, statin drug, and beta-blockers as part of regimen. 6. Conservative management in view of performance status and advanced age. Kyle Franklin M.D. DR: ADELAIDA JOB#: [id number] CC:
--- NOTE | 2017-06-22 19:34 | Cardiology Report ---
APPROVED REPORT EKG Measurement Heart [id number] LA [id number] Normal sinus rhythm T wave abnormality, consider lateral ischemia Prolonged QT Abnormal ECG
--- NOTE | 2017-06-23 12:32 | Discharge Summary ---
Discharge Summary Hospital Course Date of Admission Jun 16, 2017 at 13:07 Date of Discharge Jun 21, 2017 at 14:25 Admitting Diagnosis uncontrolled seizures HPI Stephanie Dietrich is a 81 year old female who was admitted on Jun 16, 2017 at 13 :07 for Uncontrolled Seizures Hospital Course [id number] Discharge Discharge Disposition Patient was discharged to SNF/Subacute Facility(03) Discharge Diagnoses: Kristy Joyce NP Jun 23, 2017 12:32
--- NOTE | 2017-06-23 13:11 | Diagnostic Imaging Report ---
APPROVED REPORT CPT Code: 77281 Present Symptoms Lower Extremity Pain: Comments: R/O DVT. BILATERAL LOWER EXTREMITY: Imaging reveals a patent deep venous system bilaterally. There is no evidence of thrombus within the femoral, popliteal or tibial segments. The greater saphenous veins are also within normal limits. Doppler indicates normal spontaneous flow within these segments.
--- NOTE | 2017-06-23 13:12 | Diagnostic Imaging Report ---
APPROVED REPORT CPT Code: 89511 Vascular Symptoms Dizziness and Vertigo Doppler Spectral Velocity Analysis RightLeft pSFU470/11 cm/sdICA92/34 cm/s pICA78/15 cm/spICA96/32 cm/s VDE781/2 cm/bRPH309/13 cm/s dCCA60/16 cm/sdCCA68/13 cm/s pCCA46/8 cm/spCCA53/1 cm/s Vert.95/1 cm/sVert.48/23 cm/s Right ICA/CCA ratio2.8Left ICA/CCA ratio1.4 common carotid, internal carotid and external carotid arteries. Imaging also reveals mild to moderate plaque in the carotid bulb. The Doppler spectral flow analysis indicates the degree of stenosis in the distal internal carotid artery is moderate (60%), and moderate to severe in the external carotid artery (60% - 70%). VERTEBRAL- The vertebral artery is patent, without evidence of stenosis or steal. Vertebral artery peak systolic velocities are elevated, with little diastolic flow. The subclavian artery is patent. internal carotid and external carotid arteries. Imaging also reveals mild plaque in the carotid bulb. The Doppler spectral flow analysis indicates the degree of stenosis in the internal carotid artery is mild (30% - 40%). VERTEBRAL- The vertebral artery is patent, without evidence of stenosis or steal. The subclavian artery is patent.
--- NOTE | 2017-06-24 05:15 | Discharge Summary 2 SIG ---
DATE OF ADMISSION: 06/16/2017 DATE OF DISCHARGE: 06/21/2017 CONSULTANTS: 1. Kyle Franklin M.D. 2. Quoc Ferreira M.D. 3. Oswaldo Adorno M.D. BRIEF HOSPITAL COURSE: The patient is an 81-year-old female, who is a skilled nursing resident of [facility]. She had an episode of syncope and possible seizure activity while eating lunch. Son reported recent admission due to similar presentation and at that time, she was hypertensive and had orthostatic hypotension. Past medical history was notable for hypertensive cardiovascular disease, Alzheimer dementia, previous CVA, and CKD, not on dialysis. Evaluation at ED showed chest x-ray with no infiltrates. CT of the head with chronic changes. EKG was without injury. She was admitted to telemetry for evaluation of seizure. Creatinine was 4.8. Neurologic evaluation done by Dr. Adorno showed problems with orientation, recent and remote memory, visuospatial function, higher cognitive function and language. She had mild right VII central facial paresis and globally diminished deep tendon reflexes. She had an EEG done that revealed a left temporal epileptogenic focus and moderate metabolic encephalopathy. She was given Keppra 500 mg p.o. q.12 h. She had elevated troponin. On admission was 0.047, however, went up to 3.8. Dr. Franklin was consulted. The patient had acute LA and was started on anti-platelet therapy with aspirin and Lipitor 10 mg. He was given amlodipine and metoprolol 25 mg q.12 h. Carotid duplex scan showed irregular plaques on bilateral external carotid artery. The patient had chronic kidney disease stage 5 with anemia and was given Epogen. Troponin level down trended. The patient was discharged back to [facility]. FINAL DIAGNOSES: 1. Acute non-ST elevated myocardial infarction. 2. Syncope, possibly due to arrhythmia. 3. Chronic kidney disease stage 5. 4. Hypertension. 5. Anemia of chronic kidney disease. 6. Elevated BNP due to renal failure. 7. Chronic diastolic congestive heart failure. 8. Cerebrovascular disease with dementia. 9. Hypertensive heart disease with malignant range blood pressure. 10. Moderate protein-calorie malnutrition. DISPOSITION: The patient was discharged to [facility]. DISCHARGE MEDICATIONS: Refer to medication list. Erik Gonzalez M.D. I have been assigned to dictate discharge summary on this account and I was not involved in the patient's management. Kristy Joyce N.P. DR: Raffi JOB#: [id number] CC: CARYL
--- NOTE | 2017-06-27 21:47 | Cardiology Report ---
APPROVED REPORT EXAM: Two-dimensional and M-mode echocardiogram with Doppler and color Doppler. INDICATION SOB M-Mode DIMENSIONS IVSd1.3 (0.7-1.1cm)Left Atrium (MM)3.3 (1.6-4.0cm) LVDd4.2 (3.5-5.6cm)Aortic Root2.9 (2.0-3.7cm) PWd1.6 (0.7-1.1cm)Aortic Cusp Exc.1.5 (1.5-2.0cm) IVSs1.9 cm LVDs2.9 (2.5-4.0cm) PWs2.1 cm Normal left ventricular chamber size, systolic function and wall motion. Left ventricular ejection fraction estimated to be 60 %. Mild left ventricular hypertrophy by 2-D. No evidence of pericardial effusion. All othe cardiac chamber sizes are within normal limits. Focal aortic valve sclerosis with adequate cusp excursion. Thickened mitral valve leaflets with normal excursion. Mitral annulus and aortic root calcification. Pulmonic valve not well visualized. Normal tricuspid valve structure. IVC at 1.8 cm with physiologic collapse. A color flow and spectral Doppler study was performed and revealed: No aortic regurgitation. Mild mitral regurgitation. Mitral diastolic velocities suggest reduced left ventricular relaxation c/w mild LV diastolic dysfunction (Grade I ). Trace tricuspid regurgitation. Tricuspid systolic velocities suggests peak right ventricular systolic pressure of 23 mmHg . No Pulmonic regurgitation present.
--- NOTE | 2017-06-28 00:13 | Cardiology Report ---
APPROVED REPORT EKG Measurement Heart [id number] CA 156P69 [id number] Normal sinus rhythm Possible Left atrial enlargement Prolonged QT Abnormal ECG
== END 2017-06-21 14:25 | DRG 281 ==
LOC: EDBD 12:19 → EMR 13:00 → 2E 13:07 → EDBEDREQ 16:11 → 2E 06-20 15:23
DX: I21.4 Non-ST elevation (NSTEMI) myocardial infarction (principal); E44.0 Moderate protein-calorie malnutrition; I13.2 Hypertensive heart and chronic kidney disease with heart failure and with stage 5 chronic kidney disease, or end stage renal disease; N18.5 Chronic kidney disease, stage 5; I50.32 Chronic diastolic (congestive) heart failure; G30.9 Alzheimer's disease, unspecified; F02.80 Dementia in other diseases classified elsewhere, unspecified severity, without behavioral disturbance, psychotic disturbance, mood disturbance, and anxiety; D63.1 Anemia in chronic kidney disease; I95.1 Orthostatic hypotension; I49.9 Cardiac arrhythmia, unspecified; Z68.24 Body mass index [BMI] 24.0-24.9, adult; Z86.73 Personal history of transient ischemic attack (TIA), and cerebral infarction without residual deficits
CPT/HCPCS: 36415; 70450; 71010; 80048; 80053; 80061; 80299; 80307; 82044; 82306; 82550; 82553; 82570; 82607; 82728; 82746; 82962; 83036; 83540; 83550; 83880; 84300; 84443; 84484; 85025; 85651; 86592; 93005; 93306; 93880; 93970; 95819; 99285; J2405

== ENCOUNTER 2017-06-29 15:02 | Emergency (ER) | payer OTHER ==
[~2017-06-29] VITALS: Ht 170.2 cm; Wt 63.5 kg
[~2017-06-29 15:02] MED LIST changes: +APRESOLINE50 MG ORAL; +ISOSORBIDE DINI20 M2 PO; +KEPPRA500 M3 ORAL; +LEVETIRACE500 MG/100 IV; +LOPRESSOR25 M1 ORAL; +PROCRIT20000 UNI2 SUBQ
[2017-06-29] MEDS ORDERED: AMLODIPINE BESY10 MG ORAL (15:18)
[2017-06-29] MEDS ORDERED: ATORVASTATIN CA10 MG ORAL (15:18)
[2017-06-29] MEDS ORDERED: FUROSEMIDE20 M1 ORAL (15:18)
[2017-06-29] MEDS ORDERED: HYDRALAZINE HCL50 MG ORAL (15:18)
[2017-06-29] MEDS ORDERED: NEPHRONEX-SL T1 EACH PO (15:18)
[2017-06-29] MEDS ORDERED: ISOSORBIDE DINI30 MG ORAL (15:18)
[2017-06-29] MEDS ORDERED: LEVETIRACETAM500 MG ORAL (15:18)
[2017-06-29] MEDS ORDERED: D5W 110ml ONE (15:36)
[2017-06-29] MEDS ORDERED: Sodium Chloride 500ML 500 ML IV ONE (15:50)
[2017-06-29] MEDS ORDERED: levETIRAcetam 500 MG in D5W 110 ML IV ONE (16:00)
[2017-06-29 16:01] LABS: HEMATOCRIT 33.1 % (37.0-47.0); HEMOGLOBIN 9.7 G/DL (12.0-16.0); LYMPHOCYTES % (AUTO) 20.5 % (20.0-45.0); MEAN CORPUSCULAR VOLUME 75 FL (80-99); MONOCYTES % (AUTO) 8.7 % (1.0-10.0); NEUTROPHILS % (AUTO) 67.8 % (45.0-75.0); PLATELET COUNT 306 K/UL (150-450); RED BLOOD COUNT 4.44 M/UL (4.20-5.40); RED CELL DISTRIBUTION WIDTH 15.2 % (11.6-14.8); WHITE BLOOD COUNT 6.7 K/UL (4.8-10.8)
[2017-06-29] MEDS ORDERED: levETIRAcetam 500mg vial IV ONE (16:04)
[2017-06-29 16:15] LABS: ANION GAP 11 mmol/L (5-15); BLOOD UREA NITROGEN 61 mg/dL (7-18); CARBON DIOXIDE 26 MMOL/L (21-32); CHLORIDE 101 MMOL/L (98-107); CREATININE 4.9 MG/DL (0.55-1.30); POTASSIUM 3.6 MMOL/L (3.5-5.1); SODIUM 138 MMOL/L (136-145)
[2017-06-29 16:22] LABS: ALANINE AMINOTRANSFERASE 12 U/L (12-78); ALBUMIN 3.1 G/DL (3.4-5.0); ALBUMIN/GLOBULIN RATIO 0.7 (1.0-2.7); ALKALINE PHOSPHATASE 67 U/L (46-116); ASPARTATE AMINO TRANSFERASE 16 U/L (15-37); BILIRUBIN,TOTAL 0.2 MG/DL (0.2-1.0)
--- NOTE | 2017-06-29 18:45 | Diagnostic Imaging Report ---
Indication: Altered mental status, seizures Technique: Continuous helical CT scanning of the head was performed utilizing automated exposure control without intravenous contrast material. Axial and coronal reconstructions were obtained. Comparison: 06/16/2017 CT dose: Total DLP 1446.46 mGycm; CTDI vol 70.38 mGy Findings: There is no acute intracranial hemorrhage, mass effect or cortical edema. The ventricles, cisterns and sulci are prominent consistent with atrophy. Periventricular hypoattenuation is seen, a nonspecific finding. There is unchanged remote lacunar infarct in the left basal ganglia with ex vacuo dilatation of the frontal horn of the left lateral ventricle. There is no depressed skull fracture. No focal soft tissue swelling/scalp hematoma seen. Mastoid air cells are clear. Minimal thickening noted within some ethmoid air cells. The remainder the visualized paranasal sinuses are clear. Evidence of prior cataract surgery. Impression: No evidence of acute intracranial hemorrhage, mass effect or cortical edema. MRI may be obtained for more sensitive evaluation as clinically indicated. Atrophy and nonspecific periventricular hypoattenuation suggestive of chronic ischemic microvascular changes. Unchanged remote infarct in the left basal ganglia. This corresponds with the statrad preliminary report. The CT scanner at [facility] is accredited by the [employer] and the scans are performed using protocols designed to limit radiation exposure to as low as reasonably achievable to attain images of sufficient resolution adequate for diagnostic evaluation.
[2017-06-29 19:15] VITALS: BP 187/82
[2017-06-29 19:21] VITALS: BP 187/82
[2017-06-29 19:43] VITALS: BP 187/82
--- NOTE | 2017-06-29 22:00 | Emergency Room Report ---
History of Present Illness General Chief Complaint: Seizure Source: Medical Record Present Illness HPI 81-year-old female presents ED status post seizure. Witnessed seizure at custodial. Last 1 minute. No head injury. Patient is at baseline mentation as per EMS and daughter at bedside. Patient has history of dementia. Patient has history of seizures and takes Keppra. Denies fevers chills. Denies headache. Denies chest pain or shortness of breath. No aggravating relieving factors. Denies any other associated symptoms Allergies: Coded Allergies: No Known Allergies (Verified , 01/05/09) Patient History Past Medical History: HTN, dementia, seizures Past Surgical History: none Pertinent Family History: none Social History: Denies: smoking, alcohol use, drug use Last Menstrual Period: Unk Now: No Immunizations: UTD Reviewed Nursing Documentation: PMH: Agreed, PSxH: Agreed Nursing Documentation-PMH Hx Hypertension: Yes - Malignant Hypertensive Urgency Hx Cancer: No Hx Dementia: Yes Hx Alzheimer's Disease: Yes Hx Memory Loss: Yes Hx Dizziness: Yes Review of Systems All Other Systems: negative except mentioned in HPI Physical Exam Vital Signs Date Time Temp Pulse Resp B/P (MAP) Pulse Ox O2 Delivery O2 Flow Rate FiO2 06/29/17 15:03 97.9 73 16 149/75 100 Room Air Sp02 EP Interpretation: reviewed, normal General Appearance: no apparent distress, alert, GCS 15, non-toxic Head: normocephalic, atraumatic Eyes: bilateral eye normal inspection, bilateral eye PERRL ENT: hearing grossly normal, normal pharynx, no angioedema, normal voice Neck: full range of motion, supple/symm/no masses Respiratory: chest non-tender, lungs clear, normal breath sounds, speaking full sentences Cardiovascular #1: regular rate, rhythm, no edema Cardiovascular #2: 2+ carotid (R), 2+ carotid (L), 2+ radial (R), 2+ radial (L) , 2+ dorsalis pedis (R), 2+ dorsalis pedis (L) Gastrointestinal: normal bowel sounds, non tender, soft, non-distended, no guarding, no rebound Rectal: deferred Genitourinary: normal inspection, no CVA tenderness Musculoskeletal: back normal, gait/station normal, normal range of motion, non- tender Neurologic: other - dementia Psychiatric: other - dementia Reflexes: 3+ bicep (R), 3+ bicep (L), 3+ tricep (R), 3+ tricep (L), 3+ knee (R) , 3+ knee (L) Skin: normal color, no rash, warm/dry, well hydrated Lymphatic: no adenopathy Medical Decision Making Diagnostic Impression: Primary Impression: Seizure ER Course Hospital Course 81-year-old F presents to ED status post seizure. Differential diagnosis includes- breakthrough seizure, alcohol abuse, noncompliance with medication Clinical course Patient placed on stretcher. Initial history and physical I ordered labs, IV fluids, Keppra, CT brain Labs-electrolytes okay, no leukocytosis, hemoglobin/hematocrit stable. EKG - NSR, no acute ischemic changes interpred by me CT Brain ok Discussed findings with family. Agreed that patient is at baseline mentation. Given that negative workup I believe patient be safely discharged back to facility. Family agrees and wishes to take the patient back Diagnosis - seizure stable and discharged to SNF. Followup with PMD. Return to ED if symptoms recur or worsen Labs Test 06/29/17 15:45 White Blood Count 6.7 K/UL (4.8-10.8) Red Blood Count 4.44 M/UL (4.20-5.40) Hemoglobin 9.7 G/DL (12.0-16.0) Hematocrit 33.1 % (37.0-47.0) Mean Corpuscular Volume 75 FL (80-99) Mean Corpuscular Hemoglobin 21.8 PG (27.0-31.0) Mean Corpuscular Hemoglobin Concent 29.2 G/DL (32.0-36.0) Red Cell Distribution Width 15.2 % (11.6-14.8) Platelet Count 306 K/UL (150-450) Mean Platelet Volume 6.8 FL (6.5-10.1) Neutrophils (%) (Auto) 67.8 % (45.0-75.0) Lymphocytes (%) (Auto) 20.5 % (20.0-45.0) Monocytes (%) (Auto) 8.7 % (1.0-10.0) Eosinophils (%) (Auto) 2.0 % (0.0-3.0) Basophils (%) (Auto) 1.0 % (0.0-2.0) Sodium Level 138 MMOL/L (136-145) Potassium Level 3.6 MMOL/L (3.5-5.1) Chloride Level 101 MMOL/L (98-107) Carbon Dioxide Level 26 MMOL/L (21-32) Anion Gap 11 mmol/L (5-15) Blood Urea Nitrogen 61 mg/dL (7-18) Creatinine 4.9 MG/DL (0.55-1.30) Estimat Glomerular Filtration Rate mL/min (>60) Glucose Level 122 MG/DL (74-106) Calcium Level 9.0 MG/DL (8.5-10.1) Total Bilirubin 0.2 MG/DL (0.2-1.0) Aspartate Amino Transf (AST/SGOT) 16 U/L (15-37) Alanine Aminotransferase (ALT/SGPT) 12 U/L (12-78) Alkaline Phosphatase 67 U/L (46-116) Total Protein 7.7 G/DL (6.4-8.2) Albumin 3.1 G/DL (3.4-5.0) Globulin 4.6 g/dL Albumin/Globulin Ratio 0.7 (1.0-2.7) EKG Diagnostic Results Rate: normal Rhythm: NSR ST Segments: no acute changes ASA given to the pt in ED: No Rhythm Strip Diag. Results EP Interpretation: yes Rhythm: NSR, no PVC's, no ectopy CT/MRI/US Diagnostic Results CT/MRI/US Diagnostic Results : Imaging Test Ordered: CT Head Impression no acute process Last Vital Signs Date Time Temp Pulse Resp B/P (MAP) Pulse Ox O2 Delivery O2 Flow Rate FiO2 06/29/17 19:21 97.9 21 187/82 98 Room Air 06/29/17 19:15 81 Status: improved Disposition: XFER SNF Condition: Stable Patient Instructions: Seizure, Adult LIBRADO VOGEL M.D. Jun 29, 2017 22:00
--- NOTE | 2017-07-02 15:31 | Cardiology Report ---
APPROVED REPORT EKG Measurement Heart [id number] MD [id number] Normal sinus rhythm with sinus arrhythmia Possible Left atrial enlargement Left ventricular hypertrophy Nonspecific T wave abnormality Prolonged QT Abnormal ECG
== END 2017-06-29 19:21 ==
LOC: EDBD 15:02 → EMR 15:35
DX: G40.909 Epilepsy, unspecified, not intractable, without status epilepticus (principal); G30.9 Alzheimer's disease, unspecified; F02.80 Dementia in other diseases classified elsewhere, unspecified severity, without behavioral disturbance, psychotic disturbance, mood disturbance, and anxiety; Z79.899 Other long term (current) drug therapy; I10 Essential (primary) hypertension
CPT/HCPCS: 36415; 70450; 80053; 85025; 93005; 96361; 96365; 96375; 99284; J0360; J1953; J7040

== ENCOUNTER 2017-07-02 10:01 | Emergency (ER) | payer OTHER ==
[~2017-07-02] VITALS: Ht 165.1 cm; Wt 63.5 kg
[~2017-07-02 10:01] MED LIST changes: +ATORVASTATIN CA10 MG ORAL; +ISOSORBIDE DINI30 MG ORAL; +LEVETIRACETAM500 MG ORAL; +NEPHRONEX-SL T1 EACH PO
--- NOTE | 2017-07-02 10:44 | Emergency Room Report ---
History of Present Illness General Chief Complaint: Syncope Source: Patient Present Illness HPI 81-year-old female sent by EMS from [facility] for alleged syncopal episode of 5 seconds EMS states that [facility] states patient had low blood pressure at the time, possibly just given her HTN medication There was no trauma or seizure activity She currently denies any complaints including chest pain, shortness of breath, headache Per son, and review of EMR, patient has history of dementia so history of present illness is limited Was in the ER last week for seizure activity, CT head was normal. Was eventually discharged from the ER back to SNF. Allergies: Coded Allergies: No Known Allergies (Verified , 01/05/09) Patient History Past Medical History: see triage record, old chart reviewed Past Surgical History: none Pertinent Family History: none Social History: Denies: smoking, alcohol use, drug use Now: No Immunizations: UTD Reviewed Nursing Documentation: PMH: Agreed, PSxH: Agreed Nursing Documentation-PMH Hx Cardiac Problems: Yes - TIA, Stroke Hx Hypertension: Yes Hx Cancer: No Hx Gastrointestinal Problems: No Hx Neurological Problems: Yes Hx Cerebrovascular Accident: Yes - Stroke Hx Dementia: Yes Hx Alzheimer's Disease: Yes Hx Memory Loss: Yes Hx Dizziness: Yes Review of Systems All Other Systems: negative except mentioned in HPI Physical Exam Vital Signs Date Time Temp Pulse Resp B/P (MAP) Pulse Ox O2 Delivery O2 Flow Rate FiO2 07/02/17 09:57 97.5 65 16 131/78 99 Room Air Sp02 EP Interpretation: reviewed, normal General Appearance: normal inspection, well appearing, no apparent distress, alert, GCS 15, non-toxic Head: normocephalic, atraumatic Eyes: bilateral eye PERRL, bilateral eye EOMI ENT: normal ENT inspection, hearing grossly normal, normal pharynx, no angioedema, normal voice, TMs + canals normal, uvula midline, moist mucus membranes Neck: normal inspection, full range of motion, supple, thyroid normal, no meningismus, no bony tend Respiratory: normal inspection, lungs clear, normal breath sounds, no rhonchi, no respiratory distress, no retraction, no accessory muscle use, no wheezing, speaking full sentences Cardiovascular #1: regular rate, rhythm, no edema, no JVD, normal capillary refill Gastrointestinal: normal inspection, normal bowel sounds, non tender, soft, no mass, no peritonitis, non-distended, no guarding, no hernia, no pulsatile mass Genitourinary: no CVA tenderness Musculoskeletal: normal inspection, back normal, normal range of motion, no calf tenderness, pelvis stable, Nidhi's Sign negative Neurologic: normal inspection, alert, responsive, forensic economist III-XII nml as tested, motor strength/tone normal, cerebellar normal, normal gait, speech normal Psychiatric: normal inspection, judgement/insight normal, mood/affect normal, no suicidal/homicidal ideation, no delusions Skin: normal inspection, normal color, no rash Lymphatic: normal inspection, no adenopathy Medical Decision Making Diagnostic Impression: Primary Impression: Syncope Qualified Codes: R55 - Syncope and collapse ER Course vital signs stable, afebrile I doubt this was a seizure activity given there is no postictal period, no urinary incontinence, no tongue biting She has no focal neurological deficits Has not had any additional seizures in the ER ECG is nonischemic - is unchanged from previous EKG from last month Likely vasovagal from recently given blood pressure medications at [facility] Blood pressure is stable here Son bedside and will take the patient back to SNF ER course: Patient has remained stable during ED stay. Disposition: Patient is to be discharged to home. Patient is instructed to follow up with their primary care doctor within 5 days. Strict return precautions discussed with patient such as fever, chills, worsening/severe pain, nausea, vomiting, which may indicate severe illness. Patient verbalizes understanding and agrees with plan. Please note that this Emergency Department Report was dictated using [employer] technology software, occasionally this can lead to erroneous entry secondary to interpretation by the dictation equipment EKG Diagnostic Results Rate: normal Rhythm: NSR ST Segments: no acute changes ASA given to the pt in ED: No Rhythm Strip Diag. Results EP Interpretation: yes Rate: 60 Rhythm: NSR, no PVC's, no ectopy Last Vital Signs Date Time Temp Pulse Resp B/P (MAP) Pulse Ox O2 Delivery O2 Flow Rate FiO2 07/02/17 09:57 97.5 65 16 131/78 99 Room Air Status: improved Disposition: XFER SNF Condition: Improved Referrals: NON PHYSICIAN (PCP) Patient Instructions: Syncope Additional Instructions: - ECG unchanged from most recent May admission - Syncopal episode likely due to hypotension/vasovagal from ?recently given HTN meds - Follow up with your primary care doctor in 2-3 days LUDA WADDELL M.D. Jul 02, 2017 10:44
[2017-07-02 11:14] VITALS: BP 167/67
[2017-07-02 11:17] VITALS: BP 167/67
--- NOTE | 2017-07-07 14:50 | Cardiology Report ---
APPROVED REPORT EKG Measurement Heart [id number] Normal sinus rhythm with sinus arrhythmia Possible Left atrial enlargement Left ventricular hypertrophy Nonspecific T wave abnormality Prolonged QT Abnormal ECG
== END 2017-07-02 11:18 ==
LOC: EDBD 10:01 → EMR 10:24
DX: R55 Syncope and collapse (principal); I10 Essential (primary) hypertension; Z86.73 Personal history of transient ischemic attack (TIA), and cerebral infarction without residual deficits; F03.90 Unspecified dementia, unspecified severity, without behavioral disturbance, psychotic disturbance, mood disturbance, and anxiety
CPT/HCPCS: 93005; 99283